=== PATIENT | female | born 1945 | race Caucasian/White ===

== ENCOUNTER 2016-11-13 15:37 | Emergency (ER) | payer MEDICAID, OTHER ==
[~2016-11-13] VITALS: Ht 157.5 cm; Wt 70.0 kg
[2016-11-13 15:50] VITALS: BP 143/92; PULSE 75; RESP 15; TEMP 97.5; O2SAT 95
--- NOTE | 2016-11-13 16:11 | PD ---
HPI Chief Complaint: Skin Problem Time Seen by Provider: 16:00 Travel History International Travel<30 days: No Contact w/Intl Traveler<30days: No Traveled to known affect area: No History of Present Illness HPI 70-year-old female presents for evaluation of an area of painful soft tissue swelling on the left mid back. She first noticed a few days ago. She has had a small bump there for a long time that became more tender and swollen over the last few days. No drainage. No fevers or chills. She has had this issue in the past. No other complaints. PFSH Past Medical History Medical History: Denies Significant Hx Diminished Hearing: No Immunizations Current: Yes Tetanus Vaccination: < 5 Years Influenza Vaccination: No ?: Not Menopausal: Yes Past Surgical History Hysterectomy: Yes Tonsillectomy: Yes Other Surgery: Yes (thyroid) Social History Alcohol Use: No Tobacco Use: No Substance Use: No Allergies-Medications (Allergen,Severity, Reaction): Coded Allergies: Penicillin (Verified Allergy, Intermediate, RASH, 11/13/16) Reported Meds & Prescriptions Reported Meds & Active Scripts Active Clindamycin (Clindamycin HCl) 300 Mg Cap 300 Mg PO TID 7 Days Review of Systems General / Constitutional: No: Fever, Chills Skin: Positive Other (soft tissue swelling, redness, pain) Physical Exam Narrative GENERAL: Well-developed well-nourished female in no acute distress SKIN: Warm and dry. 2-3 cm area of fluctuance on the left upper back. Tender to palpation. There is no drainage. No surrounding erythema. CARDIOVASCULAR: Regular rate and rhythm. No murmur appreciated. RESPIRATORY: No accessory muscle use. Clear to auscultation. Breath sounds equal bilaterally. Data Data Last Documented VS Vital Signs Date Time Temp Pulse Resp B/P Pulse Ox O2 Delivery O2 Flow Rate FiO2 11/13/16 15:50 97.5 75 15 143/92 95 Orders Lidocai-Epi 1%-1:100,000 Inj (Xylocaine- (11/13/16 16:15) Wound Culture And Gram Stain (11/13/16 16:07) MDM Medical Decision Making Medical Screen Exam Complete: Yes Emergency Medical Condition: Yes Medical Record Reviewed: Yes Differential Diagnosis Infected sebaceous cyst, abscess, lipoma, sarcoma Narrative Course The patient appears to have an infected cyst on the left upper back. Incision and drainage performed, she verbally consents. Local wound culture performed. Procedures Procedure Narrative INCISION AND DRAINAGE OF INFECTED CYST: The area was prepped and was sterilely draped. A subcutaneous wheal of 1% Xylocaine with epinephrine with a total number 6 mL was used to anesthetize the area. The area was properly anesthetized. A [id number] scalpel was used to make a 1.5 -cm incision across the area of the abscess. Cultures were obtained. The abscess was drained an irrigated with normal saline. Diagnosis Primary Impression: Infected sebaceous cyst Additional Instructions: Take the antibiotics as prescribed. Warm soaks or compresses 2-3 times a day 10 -15 minutes at a time. Follow-up with primary care physician as needed and return for any emergent medical conditions. Med/Other Pt SpecificInfo: Prescription(s) given, Wound Care Scripts Clindamycin 300 Mg [id number] Mg PO TID 7 Days Ref 0 Prov:Arslan Hernandez MD 11/13/16 Disposition: 01 DISCHARGE HOME Condition: Stable Reynaldo Jang Nov 13, 2016 16:11
[2016-11-13] MEDS ORDERED: LIDOCAINE 1%/EPINEPHrine 1:100,000 SOLN 20 ML VIAL INFIL ONE (16:15)
[2016-11-13] MEDS ORDERED: CLIN1CAP6 PO (16:32)
[2017-02-02] MEDS ORDERED: IBUP200C17 PO (15:26)
== END 2016-11-13 16:56 | disposition home or self-care (01) ==
LOC: PHEFT 15:37
DX: L72.3 Sebaceous cyst (principal)
CPT/HCPCS: 10060; 87070; 87205

== ENCOUNTER 2017-01-24 14:40 | Emergency (ER) | payer MEDICAID, MEDICARE ==
[~2017-01-24] VITALS: Ht 152.4 cm; Wt 76.0 kg
[~2017-01-24 14:40] MED LIST: CLIN1CAP6 PO
[2017-01-24 14:43] VITALS: BP 141/85; PULSE 82; RESP 20; TEMP 98.4; O2SAT 96
--- NOTE | 2017-01-24 15:56 | PD ---
HPI Chief Complaint: Abdominal Pain Time Seen by Provider: 15:42 Travel History International Travel<30 days: No Contact w/Intl Traveler<30days: No Traveled to known affect area: No History of Present Illness HPI 71yo F presents to the ED with c/o abdominal pain for 1 month but worst for last 3 days. States pain started in epigastric, RUQ but now it has migrated to RLQ. Pain is constant. Worst with spicy food. Denies any fever, chest pain, sob, n/v, dysuria, hematuria, vaginal bleeding or discharge. Had hysterectomy. Pt has not seen any physician for this pain. PFSH Past Medical History Medical History: Denies Significant Hx Diminished Hearing: No Immunizations Current: Yes Influenza Vaccination: No ?: Not Menopausal: Yes Past Surgical History Hysterectomy: Yes Tonsillectomy: Yes Other Surgery: Yes (thyroid) Social History Alcohol Use: No Tobacco Use: No Substance Use: No Allergies-Medications (Allergen,Severity, Reaction): Coded Allergies: Penicillin (Verified Allergy, Intermediate, RASH, 01/24/17) Reported Meds & Prescriptions Reported Meds & Active Scripts Active Tylenol (Acetaminophen) 325 Mg Tab 650 Mg PO Q6H PRN Review of Systems Except as stated in HPI: all other systems reviewed are Neg Physical Exam Narrative GENERAL: 71yo F not in distress. SKIN: Focused skin assessment warm/dry. HEAD: Atraumatic. Normocephalic. CARDIOVASCULAR: Regular rate and rhythm. No murmur appreciated. RESPIRATORY: No accessory muscle use. Clear to auscultation. Breath sounds equal bilaterally. GASTROINTESTINAL: Abdomen soft, +Epigastric ttp, RUQ ttp and RLQ ttp. No rebound tenderness or guarding. MUSCULOSKELETAL: No obvious deformities. No clubbing. No cyanosis. No edema. NEUROLOGICAL: Awake and alert. No obvious cranial nerve deficits. Motor grossly within normal limits. Normal speech. PSYCHIATRIC: Appropriate mood and affect; insight and judgment normal. Data Data Last Documented VS Vital Signs Date Time Temp Pulse Resp B/P Pulse Ox O2 Delivery O2 Flow Rate FiO2 01/24/17 18:36 84 18 132/78 98 01/24/17 16:10 Room Air 01/24/17 14:43 98.4 Orders Complete Blood Count With Diff (01/24/17 15:51) Comprehensive Metabolic Panel (01/24/17 15:51) Lipase (01/24/17 15:51) Urinalysis - C+S If Indicated (01/24/17 15:51) Ct Abd/Pel W Iv Contrast(Rout) (01/24/17 15:51) Iv Access Insert/Monitor (01/24/17 15:51) Ecg Monitoring (01/24/17 15:51) Oximetry (01/24/17 15:51) Morphine Inj (Morphine Inj) (01/24/17 16:00) Sodium Chloride 0.9% Flush (Ns Flush) (01/24/17 16:00) Electrocardiogram (01/24/17 15:51) Ketorolac Inj (Toradol Inj) (01/24/17 16:15) Iohexol 350 Inj (Omnipaque 350 Inj) (01/24/17 17:19) Labs Laboratory Tests Test 01/24/17 01/24/17 16:03 16:06 Urine Collection Type CLEAN CATCH Urine Color STRAW Urine Turbidity CLEAR Urine pH 5.5 Urine Specific Salome 1.004 Urine Protein NEG mg/dL Urine Glucose (UA) NEG mg/dL Urine Ketones NEG mg/dL Urine Occult Blood NEG Urine Nitrite NEG Urine Bilirubin NEG Urine Leukocyte Esterase NEG Urine Squamous Epithelial 0-5 /hpf Cells Urine Amorphous Sediment FEW Microscopic Urinalysis Comment CULT NOT INDICATED Urine Collection Time 1603 White Blood Count 8.7 TH/MM3 Red Blood Count 4.36 MIL/MM3 Hemoglobin 12.4 GM/DL Hematocrit 36.6 % Mean Corpuscular Volume 83.9 FL Mean Corpuscular Hemoglobin 28.5 PG Mean Corpuscular Hemoglobin 34.0 % Concent Red Cell Distribution Width 13.3 % Platelet Count 164 TH/MM3 Mean Platelet Volume 9.2 FL Neutrophils (%) (Auto) 52.5 % Lymphocytes (%) (Auto) 33.2 % Monocytes (%) (Auto) 11.7 % Eosinophils (%) (Auto) 1.9 % Basophils (%) (Auto) 0.7 % Neutrophils # (Auto) 4.5 TH/MM3 Lymphocytes # (Auto) 2.9 TH/MM3 Monocytes # (Auto) 1.0 TH/MM3 Eosinophils # (Auto) 0.2 TH/MM3 Basophils # (Auto) 0.1 TH/MM3 CBC Comment DIFF FINAL Differential Comment Sodium Level 142 MEQ/L Potassium Level 4.0 MEQ/L Chloride Level 106 MEQ/L Carbon Dioxide Level 29.8 MEQ/L Anion Gap 6 MEQ/L Blood Urea Nitrogen 14 MG/DL Creatinine 0.70 MG/DL Estimat Glomerular Filtration 83 ML/MIN Rate Random Glucose 82 MG/DL Calcium Level 9.1 MG/DL Total Bilirubin 0.4 MG/DL Aspartate Amino Transf 19 U/L (AST/SGOT) Alanine Aminotransferase 34 U/L (ALT/SGPT) Alkaline Phosphatase 72 U/L Total Protein 7.5 GM/DL Albumin 3.8 GM/DL Lipase 129 U/L MDM Medical Decision Making Medical Screen Exam Complete: Yes Emergency Medical Condition: Yes Interpretation(s) EKG: NSR 72bpm. No ST segment elevation or depression. Laboratory Tests Test 01/24/17 01/24/17 16:03 16:06 Urine Collection Type CLEAN CATCH Urine Color STRAW (YELLW/STRAW) Urine Turbidity CLEAR (CLEAR) Urine pH 5.5 (5.0-8.5) Urine Specific Salome 1.004 (1.002-1.035) Urine Protein NEG mg/dL (NEG-TRACE) Urine Glucose (UA) NEG mg/dL (NEG) Urine Ketones NEG mg/dL (NEG) Urine Occult Blood NEG (NEG) Urine Nitrite NEG (NEG) Urine Bilirubin NEG (NEG) Urine Leukocyte Esterase NEG (NEG) Urine Squamous Epithelial 0-5 /hpf (0-5) Cells Urine Amorphous Sediment FEW Microscopic Urinalysis Comment CULT NOT INDICATED Urine Collection Time 1603 White Blood Count 8.7 TH/MM3 (4.0-11.0) Red Blood Count 4.36 MIL/MM3 (4.00-5.30) Hemoglobin 12.4 GM/DL (11.6-15.3) Hematocrit 36.6 % (35.0-46.0) Mean Corpuscular Volume 83.9 FL (80.0-100.0) Mean Corpuscular Hemoglobin 28.5 PG (27.0-34.0) Mean Corpuscular Hemoglobin 34.0 % Concent (32.0-36.0) Red Cell Distribution Width 13.3 % (11.6-17.2) Platelet Count 164 TH/MM3 (150-450) Mean Platelet Volume 9.2 FL (7.0-11.0) Neutrophils (%) (Auto) 52.5 % (16.0-70.0) Lymphocytes (%) (Auto) 33.2 % (9.0-44.0) Monocytes (%) (Auto) 11.7 % (0.0-8.0) Eosinophils (%) (Auto) 1.9 % (0.0-4.0) Basophils (%) (Auto) 0.7 % (0.0-2.0) Neutrophils # (Auto) 4.5 TH/MM3 (1.8-7.7) Lymphocytes # (Auto) 2.9 TH/MM3 (1.0-4.8) Monocytes # (Auto) 1.0 TH/MM3 (0-0.9) Eosinophils # (Auto) 0.2 TH/MM3 (0-0.4) Basophils # (Auto) 0.1 TH/MM3 (0-0.2) CBC Comment DIFF FINAL Differential Comment Sodium Level 142 MEQ/L (136-145) Potassium Level 4.0 MEQ/L (3.5-5.1) Chloride Level 106 MEQ/L (98-107) Carbon Dioxide Level 29.8 MEQ/L (21.0-32.0) Anion Gap 6 MEQ/L (5-15) Blood Urea Nitrogen 14 MG/DL (7-18) Creatinine 0.70 MG/DL (0.50-1.00) Estimat Glomerular Filtration 83 ML/MIN (>89) Rate Random Glucose 82 MG/DL (74-106) Calcium Level 9.1 MG/DL (8.5-10.1) Total Bilirubin 0.4 MG/DL (0.2-1.0) Aspartate Amino Transf 19 U/L (15-37) (AST/SGOT) Alanine Aminotransferase 34 U/L (10-53) (ALT/SGPT) Alkaline Phosphatase 72 U/L (45-117) Total Protein 7.5 GM/DL (6.4-8.2) Albumin 3.8 GM/DL (3.4-5.0) Lipase 129 U/L (73-393) Differential Diagnosis Pancreatitis vs. cholecystitis vs. appendicitis vs. colitis Narrative Course 71yo F with abdominal pain for 1 month that is worst for the last 3 days. Labs reviewed, no leukocytosis. LFTs normal. Lipase normal. UA negative. CTa/p showed large solid enhancing mass arising from the left kidney measuring 9.4 x 7.4 x 7.3cm consistent with probable renal cell carcinoma until proven otherwise. Informed pt of this and to follow up with urology as soon as possible. Pt given toradol and pain has almost completely resolved. Abdominal exam is benign on reevaluation. Pt has no nausea or vomtiting and is tolerating PO. I have given pt a copy of the CT report and Dr. Graham's information. Diagnosis Primary Impression: Left renal mass Referrals: Roberto Graham MD call for appointment Left renal mass seen on CT scan suspicious for renal cell carcinoma. Patient Instructions: General Instructions Departure Forms: Tests/Procedures Additional Instructions: Please follow up with urology Dr. Graham as soon as possible. Return to the ED if symptoms worsen. Med/Other Pt SpecificInfo: Prescription(s) given Scripts Acetaminophen (Tylenol)325 Mg Rew745 Mg PO Q6H PRN (PAIN SCALE 1 TO 4) #20 TAB Ref 0 Prov:Summer Elliott DO 01/24/17 Disposition: 01 DISCHARGE HOME Condition: Stable Summer Elliott DO January 24, 2017 15:55
[2017-01-24] MEDS ORDERED: SODIUM CHLORIDE 0.9% FLUSH 10 ML FLUSH IV FLUSH PRN (16:00)
[2017-01-24] MEDS ORDERED: MORPHINE SULFATE 4 MG/ML INJ IV PUSH ONE (16:00)
[2017-01-24 16:08] VITALS: BP 142/81; PULSE 68; RESP 18; O2SAT 95
[2017-01-24 16:10] VITALS: O2SAT 96
[2017-01-24] MEDS ORDERED: KETOROLAC TROMETHAMINE 30 MG/ML (IVP) VIAL IV PUSH ONE (16:15)
[2017-01-24 16:25] LABS: AUTOMATED NEUTROPHIL # 4.5 TH/MM3 (1.8-7.7); BASOPHIL # 0.1 TH/MM3 (0-0.2); BASOPHIL % 0.7 % (0.0-2.0); EOSINOPHIL # 0.2 TH/MM3 (0-0.4); EOSINOPHIL % 1.9 % (0.0-4.0); HEMATOCRIT 36.6 % (35.0-46.0); HEMO FLAGS DIFF FINAL; LYMPH % 33.2 % (9.0-44.0); LYMPHOCYTE # 2.9 TH/MM3 (1.0-4.8); MEAN CELL VOLUME 83.9 FL (80.0-100.0); MEAN CORPUSCULAR HEMOGLOBIN 28.5 PG (27.0-34.0); MONO % 11.7 % (0.0-8.0); NEUT % 52.5 % (16.0-70.0); PLATELET COUNT 164 TH/MM3 (150-450); RED BLOOD COUNT 4.36 MIL/MM3 (4.00-5.30); RED CELL DISTRIBUTION WIDTH 13.3 % (11.6-17.2); WHITE BLOOD COUNT 8.7 TH/MM3 (4.0-11.0)
[2017-01-24 16:28] LABS: BLOOD, URINE NEG (NEG); GLUCOSE,URINE NEG (NEG); KETONE, URINE NEG (NEG); NITRITE,URINE NEG (NEG); PH, URINE 5.5 (5.0-8.5)
[2017-01-24 16:37] LABS: CHLORIDE 106 MEQ/L (98-107); SODIUM (NA) 142 MEQ/L (136-145)
[2017-01-24 16:38] LABS: METHOD OF COLLECTION CLEAN CATCH; URINE COLOR STRAW (YELLW/STRAW)
[2017-01-24 16:39] LABS: COMMENT (UR) CULT NOT INDICATED; CULTURE IF INDICATED CULT NOT INDICATED; SQUAMOUS EPITHELIAL CELL URINE 0-5 /hpf (0-5)
[2017-01-24 16:41] LABS: ANION GAP 6 MEQ/L (5-15); BICARBONATE 29.8 MEQ/L (21.0-32.0); BLOOD UREA NITROGEN 14 MG/DL (7-18)
[2017-01-24 16:44] LABS: ALT (GPT) 34 U/L (10-53); AST (GOT) 19 U/L (15-37); GLOMERULAR FILTRATION RATE 83 ML/MIN (>89)
[2017-01-24 16:45] LABS: TOTAL BILIRUBIN ADULT 0.4 MG/DL (0.2-1.0)
[2017-01-24 16:47] LABS: ALKALINE PHOSPHATASE 72 U/L (45-117)
[2017-01-24] MEDS ORDERED: IOHEXOL 350 MG/ML 10 ML VIAL (for RAD DIAG) IV ONE (17:19)
--- NOTE | 2017-01-24 18:05 | RADHPO ---
EXAM DATE/TIME: 01/24/2017 17:08 [facility] COMPARISON: No previous studies available for comparison. INDICATIONS : Right sided abdominal pain. IV CONTRAST: 75 cc Omnipaque 350 (iohexol) IV ORAL CONTRAST: No oral contrast ingested. RADIATION DOSE: 16.33 CTDIvol (mGy) MEDICAL HISTORY : None SURGICAL HISTORY : Hysterectomy. ENCOUNTER: Initial ACUITY: 1 day PAIN SCALE: 2/10 LOCATION: Right upper quadrant TECHNIQUE: Volumetric scanning of the abdomen and pelvis was performed. Using automated exposure control and ad justment of the mA and/or kV according to patient size, radiation dose was kept as low as reasonably achievable to obtain optimal diagnostic quality images. FINDINGS: There is evidence of a large solid enhancing mass arising from the left kidney measuring 9.4 x 7.4 x 7.3 cm consistent with probable renal cell carcinoma until proven otherwise. No thrombus is noted wi thin the left renal vein. No significant retroperitoneal lymphadenopathy is noted. There is a compl ex cystic lesion within the right kidney measuring 2.6 cm which is somewhat indeterminate on this exa mination. Scattered smaller simple cysts are noted within the right kidney also. There is a low den sity lesion within the left lobe of the liver measuring 12 mm consistent with probable hepatic cyst. No biliary ductal dilatation is noted. The gallbladder is nondistended. The spleen is normal. The pancreas is also normal. The adrenal glands are normal bilaterally. The abdominal aorta is calcifi ed but is not aneurysmally dilated. The inferior vena cava is normal. No ascites is noted. Uncompl icated sigmoid diverticulosis is noted. No acute diverticulitis is noted. The urinary bladder is un remarkable. Degenerative changes and scoliosis of the thoracolumbar spine are noted. Scattered fibr otic scarring and/or atelectasis is noted within the lung bases. CONCLUSION: 1. Large solid enhancing mass arising from the left kidney measuring 9.4 x 7.4 x 7.3 cm consistent wi th probable renal cell carcinoma until proven otherwise. 2. Complex cystic lesion within the right kidney measuring 2.6 cm. Ultrasound may be helpful for fur ther evaluation of this finding if clinically indicated. 3. Smaller simple right renal cysts. 4. 12 mm simple cyst within the left lobe of the liver. 5. Uncomplicated sigmoid diverticulosis. 6. Degenerative changes and scoliosis of the thoracolumbar spine. Magnus German MD on January 24, 2017 at 17:36 Board Certified Radiologist. This report was verified electronically.
[2017-01-24] MEDS ORDERED: TYLE325T PO (18:18)
[2017-01-24 18:36] VITALS: BP 132/78
--- NOTE | 2017-01-25 08:22 | EKG ---
Date Performed: 01/24/2017 Time Performed: 16:00:06 PTAGE: 71 years EKG: Sinus rhythm Normal ECG NO PREVIOUS TRACING DOCTOR: August Delgado Interpretating Date/Time 01/25/2017 08:22:09
[2017-02-02] MEDS ORDERED: IBUP200C17 PO (15:26)
== END 2017-01-24 18:38 | disposition home or self-care (01) ==
LOC: PHED 14:40
DX: N28.89 Other specified disorders of kidney and ureter (principal); R10.31 Right lower quadrant pain; Z88.0 Allergy status to penicillin
CPT/HCPCS: 74177; 80053; 81001; 83690; 85025; 93005; 96374; 99285; J1885; Q9967

== ENCOUNTER → 2017-02-11 | Outpatient (CLI) | payer MEDICAID ==
[~2017-02-11] MED LIST changes: -CLIN1CAP6 PO; +GADODIAMIDE PF 287 MG/ML 10 ML VIAL (for RAD MRI) IV ONE; +IBUP200C17 PO
--- NOTE | 2017-02-11 10:47 | RADRPT ---
EXAM DATE/TIME: 02/11/2017 07:58 [facility] COMPARISON: CT ABDOMEN & PELVIS W CONTRAST, January 24, 2017, 17:08. INDICATIONS : Renal mass. Right. CONTRAST: 8 cc Omniscan (gadodiamide) IV MEDICAL HISTORY : None. SURGICAL HISTORY : Hysterectomy. Tonsillectomy. Thyroidectomy. ENCOUNTER: Subsequent ACUITY: 2 months PAIN SCORE: 3/10 LOCATION: Abdomen TECHNIQUE: Multiplanar, multisequence magnetic resonance imaging of the abdomen was performed without and with i ntravenous contrast. FINDINGS: There is a large left renal mass measuring 9.3 cm the upper pole of the left kidney that is spread th rough Gerota's fascia. This mass is compressing the renal vein without obvious tumor invasion. The mass in intima association with the tail of the pancreas. There is a plane in between spleen and mas s. Large vessels are seen about the superior lateral margin of this mass. There is a second mass id entified sitting almost in the splenic hilum that is in an unusual location for adenopathy. This sampson s also have a cystic component measuring 2 cm that is intima association with the fundus of the stoma ch. There is a second complex mass in the right kidney that is septated and does show scattered areas of septum enhancement. This would be considered at least Bosniak grade III. There is no retroperitoneal adenopathy. The liver is unremarkable. CONCLUSION: Large left renal mass as described above consistent with renal cell carcinoma. Cystic mass on the ri ght Bosniak grade III. Third mass adjacent to the fundus of the stomach probable unrelated to the ki dneys. Simple cyst dome of the liver. Henrique Macias MD FACR on February 11, 2017 at 10:15 Board Certified Radiologist. This report was verified electronically.
== END ==
LOC: HRAD 06:42
PROVIDERS: ATTEND Urology
DX: N28.89 Other specified disorders of kidney and ureter (principal)
CPT/HCPCS: 74183; A9579

== ENCOUNTER → 2017-02-15 | Outpatient (CLI) | payer MEDICAID, MEDICARE ==
[~2017-02-15] MED LIST changes: -GADODIAMIDE PF 287 MG/ML 10 ML VIAL (for RAD MRI) IV ONE; +IOHEXOL 350 MG/ML 10 ML VIAL (for RAD DIAG) IV ONE
--- NOTE | 2017-02-15 11:23 | RADRPT ---
EXAM DATE/TIME: 02/15/2017 10:12 [facility] COMPARISON: No previous studies available for comparison. INDICATIONS : Evaluate for metastatic disease. IV CONTRAST: 70 cc Omnipaque 350 (iohexol) IV RADIATION DOSE: 10.29 CTDIvol (mGy) MEDICAL HISTORY : Renal mass. SURGICAL HISTORY : Hysterectomy. Thyroidectomy. ENCOUNTER: Initial ACUITY: 1 day PAIN SCALE: 0/10 LOCATION: chest TECHNIQUE: Volumetric scanning of the chest was performed. Using automated exposure control and adjustment of t he mA and/or kV according to patient size, radiation dose was kept as low as reasonably achievable to obtain optimal diagnostic quality images. FINDINGS: LUNGS: There is no consolidation or pneumothorax. 8mm nodule right lower lobe. There is also a bilobed densi ty measuring 13 mm in the right lower lobe abutting the mediastinum. 4 mm nodule right upper lobe. PLEURA: There is no pleural thickening or pleural effusion. MEDIASTINUM: The heart and great vessels demonstrate no acute abnormality. There is no mediastinal or hilar lymph adenopathy. AXILLAE: Within normal limits. No lymphadenopathy. SKELETAL: Within normal limits for patient age. MISCELLANEOUS: The visualized upper abdominal organs demonstrate large exophytic mass arising from the left kidney. Right renal low density and hepatic low densities. Prominent soft tissue density adjacent to the sple en and stomach measuring 3.1 x 2.5 cm. CONCLUSION: 1. There is an 8mm pulmonary nodule and 4 mm nodule in the right lung. There is also a bilobed densit y in the right lower lobe adjacent to the mediastinum, nonspecific. PET/CT scan may be warranted to e valuate for hypermetabolic activity. 2. No enlarged mediastinal/hilar adenopathy. 3. Large exophytic mass arising from left kidney. 4. Prominent soft tissue nodule adjacent to the stomach and spleen measuring 3.1 x 2.5 cm likely meta static adenopathy. Chico Man MD on February 15, 2017 at 10:40 Board Certified Radiologist. This report was verified electronically.
--- NOTE | 2017-02-15 14:18 | RADRPT ---
EXAM DATE/TIME: 02/15/2017 09:41 [facility] COMPARISON: CT ABDOMEN & PELVIS W CONTRAST, January 24, 2017, 17:08. PRIOR BONE SCANS: No correlative bone scan available for comparison. INDICATIONS : Neoplasm. Bilateral kidney tumors. DOSE: 30.0 mCi Tc99m MDP IV MEDICAL HISTORY : None SURGICAL HISTORY : Tonsillectomy. Hysterectomy. ENCOUNTER: Initial ACUITY: 1 day PAIN SCALE: 0/10 LOCATION: upper quadrant TECHNIQUE: Three hours post intravenous administration of radiotracer, whole body bone scan imaging was performe d. FINDINGS: Blood pool images demonstrate a homogeneous pattern of uptake in the soft tissues. No hyperemic area s are identified. Planar bone scan demonstrates a normal pattern of uptake. No focal areas of incre ased or decreased uptake are seen. There is degenerative uptake along the lower lumbar spine, both sh oulders, both knees and both ankles. CONCLUSION: 1. Degenerative changes as described above. 2. No evidence for bony metastasis. Chico Man MD on February 15, 2017 at 14:04 Board Certified Radiologist. This report was verified electronically.
== END ==
LOC: HRAD 09:22
PROVIDERS: ATTEND Urology
DX: D30.00 Benign neoplasm of unspecified kidney (principal)
CPT/HCPCS: 71260; 78306; A9503; Q9967

== ENCOUNTER 2017-02-23 16:45 | Inpatient (IN) | payer MEDICARE, MEDICAID ==
[~2017-02-23] VITALS: Ht 160 cm; Wt 76.5 kg
[~2017-02-23 16:45] MED LIST changes: -IOHEXOL 350 MG/ML 10 ML VIAL (for RAD DIAG) IV ONE
[2017-02-25] VITALS (7 sets, daily range): BP systolic 94–156; BP diastolic 59–87; PULSE 71–86; RESP 12–16; TEMP 97.4–98.3; O2SAT 95–97
[2017-02-25] MEDS ORDERED: SODIUM CHLORID 0.9% 500 ML IV PRN (06:15)
[2017-02-25] MEDS ORDERED: LACTATED RINGER'S 1000 ML IV PRN (06:15)
[2017-02-25] MEDS ORDERED: INSULIN HUMAN REGULAR 1,000 UNITS/10 ML VIAL SQ PRN (06:15)
[2017-02-25] MEDS ORDERED: CHLORHEXIDINE GLUCONATE 2 % 1 PACK (2 CLOTHS) TOPICAL PRN (06:15)
[2017-02-25] MEDS ORDERED: METOPROLOL TARTRATE 25 MG TAB PO PRN (06:15)
[2017-02-25] MEDS ORDERED: POVIDONE IODINE 5% (ANTISEPSIS KIT) 4 APPLICATIONS EACH NARE PRN (06:15)
[2017-02-25] MEDS ORDERED: VANCOMYCIN 1,000 MG/NS 250 ML IV SCH ×2 (06:15)
[2017-02-25] MEDS ORDERED: ACETAMINOPHEN 1000 MG/100 ML VIAL IV ONE (07:08)
[2017-02-25] MEDS ORDERED: MIDAZOLAM HCL 2 MG/2 ML VIAL ONE (07:08)
[2017-02-25] MEDS ORDERED: fentaNYL CITRATE 250 MCG/5 ML AMP ONE (07:09)
[2017-02-25] MEDS ORDERED: DICLOFENAC SODIUM 37.5 MG/ML VIAL IV PUSH ONE (07:09)
[2017-02-25] MEDS ORDERED: DEXAMETHASONE SOD PHOS 4 MG/ML VIAL ONE (07:09)
[2017-02-25] MEDS ORDERED: HYDROmorphone HCL PF 2 MG/ML VIAL ONE (07:09)
[2017-02-25] MEDS ORDERED: FAMOTIDINE 20 MG/2 ML VIAL ONE (07:09)
[2017-02-25] MEDS ORDERED: SUGAMMADEX SODIUM 200 MG/2 ML VIAL IV PUSH ONE ×2 (07:09)
[2017-02-25] MEDS ORDERED: ePHEDrine/NS 25 MG/5 ML SYR IV ONE (08:43)
[2017-02-25] MEDS ORDERED: NEOSTIGMINE 3 MG/3 ML SYR IV ONE (08:43)
[2017-02-25] MEDS ORDERED: PROPOFOL 200 MG/20 ML AMP IV ONE (08:43)
[2017-02-25] MEDS ORDERED: PHENYLEPH/NS 1000 MCG/10 ML SYR IV ONE (08:45)
[2017-02-25] MEDS ORDERED: ONDANSETRON HCL 4 MG/2 ML VIAL IV PUSH ONE (08:45)
[2017-02-25] MEDS ORDERED: LACTATED RINGER'S 1000 ML INJ 2,000 ML IV ONE (08:45)
[2017-02-25 10:53] LABS: BLOOD GAS BASE EXCESS -2.5 mmol/L (-2-2); BLOOD GAS CARBOXYHEMOGLOBIN 1.3 % (0-4); BLOOD GAS HCO3 22 mmol/L (22-26); BLOOD GAS O2 HGB SATURATION 98 % (90-100); BLOOD GAS OXYGEN CONTENT 13.9 Vol % (12.0-20.0); BLOOD GAS PCO2 38 mmHg (38-42); BLOOD GAS PO2 245 mmHg (61-120); BLOOD GAS TOTAL HGB 9.7 G/DL (12.0-16.0); CRITICAL VALUE NO; DRAW SITE ART LINE; OXYGEN DEVICE VENTILATOR; STAT YES; TEMP CORR TO 98.6
[2017-02-25 11:53] LABS: BLOOD GAS BASE EXCESS -3.7 mmol/L (-2-2); BLOOD GAS CARBOXYHEMOGLOBIN 1.4 % (0-4); BLOOD GAS HCO3 21 mmol/L (22-26); BLOOD GAS METHEMOGLOBIN 1.3 % (0-2); BLOOD GAS O2 HGB SATURATION 97 % (90-100); BLOOD GAS OXYGEN CONTENT 16.2 Vol % (12.0-20.0); BLOOD GAS PCO2 37 mmHg (38-42); BLOOD GAS PO2 264 mmHg (61-120); BLOOD GAS TOTAL HGB 11.4 G/DL (12.0-16.0); CRITICAL VALUE NO; DRAW SITE ART LINE; OXYGEN DEVICE VENTILATOR; TEMP CORR TO 98.6
[2017-02-25 11:54] LABS: STAT YES
[2017-02-25] MEDS ORDERED: BUPIVACAINE/EPINEPHRINE 0.5% 50 ML VIAL INFIL ONE (12:08)
[2017-02-25 12:12] LABS: AUTOMATED NEUTROPHIL # 16.1 TH/MM3 (1.8-7.7); BASOPHIL % 0.2 % (0.0-2.0); EOSINOPHIL % 0.1 % (0.0-4.0); HEMATOCRIT 35.5 % (35.0-46.0); HEMO FLAGS DIFF FINAL; LYMPH % 7.9 % (9.0-44.0); LYMPHOCYTE # 1.5 TH/MM3 (1.0-4.8); MEAN CELL VOLUME 82.8 FL (80.0-100.0); MEAN CORPUSCULAR HGB CONC 32.7 % (32.0-36.0); MONO % 6.7 % (0.0-8.0); NEUT % 85.1 % (16.0-70.0); PLATELET COUNT 147 TH/MM3 (150-450); RED BLOOD COUNT 4.28 MIL/MM3 (4.00-5.30); WHITE BLOOD COUNT 18.9 TH/MM3 (4.0-11.0)
[2017-02-25] MEDS ORDERED: DO NOT ADM ANY ANTICOAGULANT DRUGS PRN (12:18)
--- NOTE | 2017-02-25 12:28 | HHI.PR ---
cc: Flynn Kennedy MD Immediate Post Op Note Procedure Date: Feb 25, 2017 Pre Op Diagnosis: (1) Left renal mass Post Op Diagnosis: (1) Left renal mass (2) Mass of stomach Surgeon: Flynn Kennedy [employer]erg[employer] Pipe Covering Supervisor(s): [place] Connors M.D. Procedure: Resection of gastric mass on the greater curve Findings: 3 cm mass greater curve Anesthesia: General Drains: None IVF Flynn Kennedy MD Feb 25, 2017 12:27
--- NOTE | 2017-02-25 12:39 | PD.OP ---
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 Martin Resident Surgeon: None Operation and Findings: 71-year-old female who presented to the office with a 9.3 cm left renal mass on CT scan. MRI was performed which demonstrated no evidence of renal vein involvement however there was a 3 cm mass in the gastro-lineal area concerning for metastatic disease. Decision was made to bring the patient to the operating room to undergo left radical nephrectomy and lymphadenectomy of possible metastatic disease. Chest MRI was negative for any evidence of metastatic disease as well as a PET scan. Risk and benefits were discussed preoperatively and she is willing to proceed. Patient was brought to operating room identified myself as Anastasia Sotelo. She was placed on the operating table in the supine position, prepped and draped in usual sterile fashion, received preprocedure antibiotics, and general endotracheal tube anesthesia was administered. 15 blade was used to make the opening left subcostal incision. Savi's and Camper's fascia were then entered as well as the oblique muscles. Peritoneum was then entered and the left descending colon was identified. Using the Bovie cautery, the descending colon was was released of its attachments along the line of Toldt. The descending colon was then reflected medially. The surrounding introitus fascia was then incised with the Bovie cautery and using my index finger I was able to free up some of the attachments along the lateral aspect of the kidney. The lower pole was then freed up of its attachments oozing the Bovie cautery. The left renal vein was then identified and a blue vessel loop was passed around the vessel using a right angle clamp. The left renal artery was also identified and it was isolated and a red vessel loop was passed around this using the right angle clamp. Both vessels were suture ligated using a 0 silk suture. The vessels were then cut. The superior attachments were then freed up using the Bovie cautery. Due to neovascularity due to large tumor some blood loss was incurred during resection. At this time, decision made to use the Ethicon stapler to remove the specimen and block from its attachments near the hilum. Specimen was then removed from the patient. Hemostasis was then obtained. There was a 3 cm mass attached to the greater curvature of the stomach and this was removed with the Metzenbaum scissors. The mass though was also extending within the lining of the stomach and general surgery was consult. Dr. Kennedy came into the room and performed a partial gastrectomy and he will dictate his portion of the case. Once Dr. Kennedy completed his portion of the case, hemostasis was then checked for. There was some oozing around the area of the spleen and Surgicel with Kavita was then placed in this area. This is allowed to sit for 5 minutes. Upon reinspection, there is no evidence of further bleeding. Decision this point was made to close the patient. The wound was irrigated. #1 looped PDS was then used to close the fascia in a running fashion. A 2 layer closure was performed. [place] were then used to close the skin. Prior to closing, a 19 Macedonian Farooq drain was placed into the wound to bulb suction. 0.5 % Marcaine was injected into the area of the wound at the time of closing. NG tube was then placed at the completion of the procedure. She was extubated and awoken and transferred to her room in stable condition. She tolerated procedure well. Tony Connors DO Feb 25, 2017 12:39
[2017-02-25] MEDS ORDERED: *morphine SULFATE 8 MG/ML PERIprocedure ONLY ONE (12:56)
--- NOTE | 2017-02-25 13:22 | PD.CONS ---
[facility] Service Critical Care Medicine Consult Requested By Urological Surgery Reason for Consult Critical Care Management Primary Care Physician Non-Staff History of Present Illness 71 y/o woman immediately s/p left nephrectomy for large renal mass and partial gastric resection for additional mass. EBL 1,800 mls. Review of Systems Constitutional: DENIES: Diaphoretic episodes, Fatigue, Fever, Weight gain, Weight loss, Chills, Dizziness, Change in appetite, Night Sweats Endocrine: DENIES: Abnorml menstrual pattern, Heat/cold intolerance, Polydipsia , Polyuria, Polyphagia Eyes: DENIES: Blurred vision, Diplopia, Eye inflammation, Eye pain, Vision loss , Photosensitivity, Double Vision Ears, nose, mouth, throat: DENIES: Tinnitus, Hearing loss, Vertigo, Nasal discharge, Oral lesions, Throat pain, Hoarseness, Ear Pain, Running Nose, Epistaxis, Sinus Pain, Toothache, Odynophagia Respiratory: DENIES: Apneas, Cough, Snoring, Wheezing, Hemoptysis, Sputum production, Shortness of breath Cardiovascular: DENIES: Chest pain, Palpitations, Syncope, Dyspnea on Exertion , PND, Lower Extremity Edema, Orthopnea, Claudication Gastrointestinal: COMPLAINS OF: Abdominal pain Musculoskeletal: DENIES: Joint pain, Muscle aches, Stiffness, Joint Swelling, Back pain, Neck pain Hematologic/lymphatic: DENIES: Bruising, Lymphadenopathy Immunologic/allergic: DENIES: Eczema, Urticaria ROS Typical postop abdominal pain. No chest pain or SOB. Past Family Social History Allergies: Coded Allergies: Penicillin (Verified Allergy, Intermediate, RASH, 02/25/17) Vancomycin (Verified Allergy, Intermediate, FACIAL/CHEST RASH, 02/25/17) Past Medical History S/P Thyroidectomy MAXINE Tonillectomy Allergies PCN - Rash Meds: NSAID Physical Exam Vital Signs Vital Signs Date Time Temp Pulse Resp B/P Pulse Ox O2 Delivery O2 Flow Rate FiO2 02/25/17 06:16 98.3 80 16 156/87 95 Physical Exam P 74, BP 85/51, R 114, sats 97% Gen: Calm Head: NL. Neck: Supple, airway patent, no obstruction or stridor. Lungs: Clear, no labored efforts. Heart: NL S1S2, RRR, Neck veins are flat. Abdomen: Post surgical, nondistended. Quiet. Extremities: Warm, well perfused. Neuro: Sleepy but O X 3, moves 4 limbs to command. Laboratory Laboratory Tests Test 02/25/17 02/25/17 02/25/17 02/25/17 06:15 10:44 11:19 11:40 Blood Type O POSITIVE O POSITIVE Blood Gas Puncture Site ART LINE Blood Gas Patient Temperature 98.6 Blood Gas HCO3 22 Blood Gas Base Excess -2.5 Blood Gas Oxygen Saturation 98 Arterial Blood pH 7.38 Arterial Blood Partial 38 Pressure CO2 Arterial Blood Partial 245 Pressure O2 Arterial Blood Oxygen Content 13.9 Arterial Blood 1.3 Carboxyhemoglobin Arterial Blood Methemoglobin 1.0 Blood Gas Hemoglobin 9.7 Oxygen Delivery Device VENTILATOR Crossmatch Leukocyte-Reduced Red Blood Cells Blood Bank Comment White Blood Count 18.9 Red Blood Count 4.28 Hemoglobin 11.6 Hematocrit 35.5 Mean Corpuscular Volume 82.8 Mean Corpuscular Hemoglobin 27.0 Mean Corpuscular Hemoglobin 32.7 Concent Red Cell Distribution Width 14.0 Platelet Count 147 Mean Platelet Volume 9.6 Neutrophils (%) (Auto) 85.1 Lymphocytes (%) (Auto) 7.9 Monocytes (%) (Auto) 6.7 Eosinophils (%) (Auto) 0.1 Basophils (%) (Auto) 0.2 Neutrophils # (Auto) 16.1 Lymphocytes # (Auto) 1.5 Monocytes # (Auto) 1.3 Eosinophils # (Auto) 0.0 Basophils # (Auto) 0.0 CBC Comment DIFF FINAL Differential Comment Test 02/25/17 11:45 Blood Gas Puncture Site ART LINE Blood Gas Patient Temperature 98.6 Blood Gas HCO3 21 Blood Gas Base Excess -3.7 Blood Gas Oxygen Saturation 97 Arterial Blood pH 7.37 Arterial Blood Partial 37 Pressure CO2 Arterial Blood Partial 264 Pressure O2 Arterial Blood Oxygen Content 16.2 Arterial Blood 1.4 Carboxyhemoglobin Arterial Blood Methemoglobin 1.3 Blood Gas Hemoglobin 11.4 Oxygen Delivery Device VENTILATOR Result Diagram: 02/25/17 1140 Assessment and Plan Assessment and Plan Assessment: 1. S/P left radial nephrectomy. 2. S/P partial gastric resection Plan: 1. Maintenance iv rate. 2. IS q2h. 3. Pulse ox. 4. CBC a.m. 5. BMP a.m. 6. HOB up 30 degrees. 7. NG to LIS, NPO. Overall impression: Warm and well perfused s/p left radical nephrectomy. Mild hypotension but quite stable. Urine output 50 ml over past hour. Will follow in ISC. Chemo Harmon MD Feb 25, 2017 13:22
[2017-02-25 13:48] LABS: BICARBONATE 22.8 MEQ/L (21.0-32.0); POTASSIUM 3.6 MEQ/L (3.5-5.1)
[2017-02-25] MEDS ORDERED: HYDROmorphone HCL PCA 6 MG/30 ML IV ONE (14:03)
--- NOTE | 2017-02-25 14:16 | RADRPT ---
EXAM DATE/TIME: 02/25/2017 12:59 [facility] COMPARISON: No previous studies available for comparison. INDICATIONS : Right central line placement MEDICAL HISTORY : Renal mass SURGICAL HISTORY : Nephrectomy ENCOUNTER: Initial ACUITY: 2 days PAIN SCORE: 5/10 LOCATION: Right chest FINDINGS: A right internal jugular central line has its tip at the junction of the superior vena cava and right atrium. There is no pneumothorax. A nasogastric tube has its tip in the proximal stomach and the s billy port in the distal esophagus. Scattered bibasilar atelectatic changes are noted. the heart is n ormal. CONCLUSION: 1. No pneumothorax status post placement of right internal jugular central line which has its tip at the junction of the superior vena cava and right atrium in good position. 2. Nasogastric tube has its tip in the proximal stomach and side port in the distal esophagus. 3. Bibasilar atelectasis. Magnus German MD on February 25, 2017 at 14:07 Board Certified Radiologist. This report was verified electronically.
--- NOTE | 2017-02-25 14:19 | MB ---
cc: MENA MELISSA M.D. DATE OF CONSULTATION: 02/25/2017 CONSULTING PHYSICIAN: [place] Connors MD. REASON FOR CONSULTATION: Gastric mass. HISTORY OF PRESENT ILLNESS: This is a 71 year old female who was found to have a renal carcinoma on the left side. She is undergoing a left nephrectomy. Dr. Connors called me into the operating room to evaluate a gastric mass along the greater curvature. He has completed the nephrectomy and has asked me to assist in the management of this gastric mass along the greater curve. 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 She had thyroid surgery in 1987. No neurologic, cardiac or respiratory issues reported in the computer and of course she is under general anesthesia so I could not do a formal review of systems. ALLERGIES PENICILLIN VANCOMYCIN MEDICATIONS: Tylenol Ibuprofen. PHYSICAL EXAMINATION: IN GENERAL: She is under general anesthesia on the ventilator, is stable. The part of the examination that I can comment on, she is on the operating room table, she appears to have a regular heart rate. ABDOMEN: She has a subcostal incision to the left side, with this tumor on the greater curve that is able to be visualized and palpated. She is status post left nephrectomy. There appears to be adequate hemostasis. NEUROLOGIC: Examination is not able to be preformed as the patient is under general anesthesia. LABORATORY DATA: Earlier today she had a blood count of 8, an Hemoglobin and hematocrit of 12 and 37. The white count was 6, chemistries are essentially normal. IMAGING STUDIES: Reviewed in the room showing the left mass. ASSESSMENT: Gastric mass along the greater curve. PLAN: This looks like it needs to be resected to me. 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 MD TIMMY Joiner/romain /12:45 PM /2:12 PM JOSÉ ANTONIO
[2017-02-25] MEDS ORDERED: CHLORHEXIDINE GLUCONATE 2 % 1 PACK (2 CLOTHS) TOP PRN (14:45)
[2017-02-25] MEDS ORDERED: MISCELLANEOUS NURSING INFORMATION XX SCH (14:45)
[2017-02-25] MEDS ORDERED: RESP: ALBUTEROL 2.5 MG/IPRATROPIUM 0.5 MG NEB (PRN) INH (14:45)
[2017-02-25] MEDS ORDERED: ONDANSETRON HCL 4 MG/2 ML VIAL IV PRN (14:45)
[2017-02-25] MEDS ORDERED: MORPHINE SULFATE 4 MG/ML INJ IV PRN (14:45)
[2017-02-25] MEDS ORDERED: HYDROmorphone HCL PF 1 MG/ML VIAL IV PUSH PRN (14:45)
[2017-02-25] MEDS ORDERED: SODIUM CHLORID 0.9% 500 ML INJ 500 ML IV ONE (15:00)
[2017-02-25] MEDS ORDERED: ACETAMINOPHEN 650 MG/20.3 ML UDC PO PRN (15:00)
[2017-02-25] MEDS ORDERED: diphenhydrAMINE HCL 25 MG CAP PO PRN (15:00)
[2017-02-25] MEDS ORDERED: ONDANSETRON HCL 4 MG/2 ML VIAL IV PUSH PRN (15:00)
[2017-02-25] MEDS ORDERED: NALOXONE HCL 0.4 MG/ML AMP IV PRN (15:00)
[2017-02-25] MEDS: CIPROFLOXACIN 400 MG PREMIX 200 ML IV SCH (15:32)
[2017-02-25] MEDS: SODIUM CHLOR 0.9% 1000 ML INJ 1,000 ML IV SCH (15:52)
--- NOTE | 2017-02-25 16:09 | RADRPT ---
EXAM DATE/TIME: 02/25/2017 12:54 [facility] COMPARISON: No previous studies available for comparison. INDICATIONS : NG tube placement MEDICAL HISTORY : Renal mass SURGICAL HISTORY : Nephrectomy ENCOUNTER: Initial ACUITY: 1 day PAIN SCORE: 6/10 LOCATION: Abdomen FINDINGS: There is a suction type nasogastric catheter with tip likely in the fundus of the stomach but sidehol e appears to be in the distal esophagus there is a left mid abdomen drain in place. Surgical staple l ine is seen in the left abdomen. Non-obstructive bowel gas pattern. Degenerative changes of the lumba r spine. CONCLUSION: 1. Suction type NGT tip likely just in the fundus of the stomach with sidehole in the distal esophagu misael Carvalho MD on February 25, 2017 at 16:05 Board Certified Radiologist. This report was verified electronically.
[2017-02-25] MEDS ORDERED: RESP: ALBUTEROL 2.5 MG/IPRATROPIUM 0.5 MG NEB (PRN) NEB (17:00)
[2017-02-25 17:41] LABS: HEMATOCRIT 32.9 % (35.0-46.0); REVIEW FLAG FINAL
[2017-02-25] MEDS ORDERED: PHENOL 1.4% SOLN 180 ML BTL OROPHARYNG PRN (21:30)
[2017-02-25] MEDS: PCA - TOTAL MG DILAUDID DELIVERED PER SHIFT SCH (22:00)
[2017-02-26] VITALS (13 sets, daily range): BP systolic 85–114; BP diastolic 52–62; PULSE 74–95; RESP 12–19; TEMP 97.5–99.6; O2SAT 94–98
[2017-02-26 04:38] LABS: AUTOMATED NEUTROPHIL # 9.6 TH/MM3 (1.8-7.7); BASOPHIL % 0.1 % (0.0-2.0); HEMATOCRIT 28.5 % (35.0-46.0); HEMO FLAGS DIFF FINAL; LYMPH % 11.5 % (9.0-44.0); LYMPHOCYTE # 1.5 TH/MM3 (1.0-4.8); MEAN CELL VOLUME 82.3 FL (80.0-100.0); MEAN CORPUSCULAR HEMOGLOBIN 27.6 PG (27.0-34.0); MEAN CORPUSCULAR HGB CONC 33.5 % (32.0-36.0); MONO % 14.8 % (0.0-8.0); NEUT % 73.6 % (16.0-70.0); PLATELET COUNT 133 TH/MM3 (150-450); RED BLOOD COUNT 3.47 MIL/MM3 (4.00-5.30); RED CELL DISTRIBUTION WIDTH 14.5 % (11.6-17.2)
[2017-02-26 04:59] LABS: POTASSIUM 4.3 MEQ/L (3.5-5.1)
[2017-02-26] MEDS: CHLORHEXIDINE GLUCONATE 2 % 1 PACK (2 CLOTHS) TOP SCH (05:06)
[2017-02-26] MEDS: SODIUM CHLOR 0.9% 1000 ML INJ 1,000 ML IV SCH ×2 (05:06→16:52)
[2017-02-26] MEDS ORDERED: SODIUM CHLOR 0.9% 1000 ML INJ 1,000 ML IV ONE (05:45)
[2017-02-26] MEDS: PCA - TOTAL MG DILAUDID DELIVERED PER SHIFT SCH ×3 (06:00→22:32)
--- NOTE | 2017-02-26 06:08 | RADRPT ---
EXAM DATE/TIME: 02/26/2017 04:18 [facility] COMPARISON: CHEST SINGLE AP, February 25, 2017, 12:59. INDICATIONS : Post op. MEDICAL HISTORY : Renal mass. SURGICAL HISTORY : Hysterectomy. Nephrectomy, left. Thyroidectomy ENCOUNTER: Initial ACUITY: 1 day PAIN SCORE: LOCATION: Bilateral chest FINDINGS: A single view of the chest demonstrates the nasogastric tube is within the esophagus with its tip at the GE junction. Right IJ central venous catheter in good position. Minimal atelectasis right midlung zone. No visible pneumothorax. Lungs are grossly clear.. The cardiomediastinal contours are unremar kable. Osseous structures are intact. CONCLUSION: The NG tube could be advanced. Lungs are grossly clear. Dustin Brown MD on February 26, 2017 at 6:06 Board Certified Radiologist. This report was verified electronically.
--- NOTE | 2017-02-26 07:09 | HHI.CCPN ---
Subjective Remarks/Hospital Course 71 y/o woman immediately s/p left nephrectomy for large renal mass and partial gastric resection for additional mass. EBL 1,800 mls. 02/26: Warm, well perfused. MAP 59 - 63. Urine output acceptable. Creat rise minimal. Objective Vital Signs Date Time Temp Pulse Resp B/P Pulse Ox O2 Delivery O2 Flow Rate FiO2 02/26/17 06:00 88 02/26/17 06:00 13 02/26/17 04:00 97.6 85/52 94 02/25/17 20:11 Nasal Cannula 2.00 Intake and Output 02/25/17 02/25/17 02/26/17 08:00 16:00 00:00 Intake Total 2614 ml 722 ml Output Total 2235 ml 335 ml Balance 379 ml 387 ml Result Diagram: 02/26/17 0415 02/26/17 0415 Other Results Laboratory Tests Test 02/25/17 02/25/17 10:44 11:45 Blood Gas Puncture Site ART LINE ART LINE Blood Gas Patient Temperature 98.6 98.6 Blood Gas HCO3 22 mmol/L 21 mmol/L (22-26) (22-26) Blood Gas Base Excess -2.5 mmol/L -3.7 mmol/L (-2-2) (-2-2) Blood Gas Oxygen Saturation 98 % (90-100) 97 % (90-100) Arterial Blood pH 7.38 7.37 (7.380-7.420) (7.380-7.420) Arterial Blood Partial 38 mmHg (38-42) 37 mmHg (38-42) Pressure CO2 Arterial Blood Partial 245 mmHg 264 mmHg Pressure O2 (61-120) (61-120) Arterial Blood Oxygen Content 13.9 Vol % 16.2 Vol % (12.0-20.0) (12.0-20.0) Arterial Blood 1.3 % (0-4) 1.4 % (0-4) Carboxyhemoglobin Arterial Blood Methemoglobin 1.0 % (0-2) 1.3 % (0-2) Blood Gas Hemoglobin 9.7 G/DL 11.4 G/DL (12.0-16.0) (12.0-16.0) Oxygen Delivery Device VENTILATOR VENTILATOR Objective Remarks P 78, BP 87/56, R 14, sats 97% Gen: Calm Head: NL. Neck: Supple, airway patent, no obstruction or stridor. Lungs: Clear, no labored efforts. No wheezes or crackles. Heart: NL S1S2, RRR, No JVD. Abdomen: Post surgical, nondistended. Few BS. Extremities: Warm, well perfused. Neuro: Alert, O X 3, moves 4 limbs to command. Conversant. A/P Assessment and Plan Assessment: 1. S/P left radial nephrectomy. 2. S/P partial gastric resection Plan: 1. Maintenance iv rate. 2. IS q2h. 3. Pulse ox. 4. Hgb a.m. 5. BMP a.m. 6. HOB up 30 degrees. 7. NG to LIS, NPO. Overall impression: Warm and well perfused s/p left radical nephrectomy. Mild hypotension but quite stable. Will follow in ISC. Chemo Harmon MD Feb 26, 2017 07:09
--- NOTE | 2017-02-26 08:37 | HHI.PR ---
Subjective Patient symptoms today Pt seen and examined. Pain controlled. Hgb 9.6. B/P stable Objective Vital Signs Vital Signs Date Time Temp Pulse Resp B/P Pulse Ox O2 Delivery O2 Flow Rate FiO2 02/26/17 08:16 94 Nasal Cannula 2.00 02/26/17 06:00 88 02/26/17 06:00 13 02/26/17 04:00 90 02/26/17 04:00 97.6 90 15 85/52 94 02/26/17 02:00 87 02/26/17 00:00 97.9 81 13 107/53 96 02/26/17 00:00 81 02/25/17 22:00 80 02/25/17 22:00 15 02/25/17 20:11 97 Nasal Cannula 2.00 02/25/17 20:00 74 02/25/17 20:00 97.4 71 12 109/59 97 02/25/17 19:00 94 Nasal Cannula 3.00 02/25/17 18:00 72 02/25/17 16:00 84 02/25/17 16:00 97.9 86 13 94/59 96 Automatic Cuff 02/25/17 15:00 81 02/25/17 15:00 98 Nasal Cannula 4.00 02/25/17 14:30 97.4 82 12 92/59 99 Nasal Cannula 4 02/25/17 14:15 79 12 94/55 99 Nasal Cannula 4 02/25/17 14:00 75 12 93/58 98 Nasal Cannula 4 02/25/17 13:45 75 12 91/56 98 Nasal Cannula 4 02/25/17 13:30 77 12 102/58 98 Nasal Cannula 4 02/25/17 13:15 84 12 95/51 98 Nasal Cannula 4 02/25/17 13:00 84 12 111/59 99 Nasal Cannula 4 02/25/17 12:45 84 12 102/60 98 Nasal Cannula 4 02/25/17 12:28 97.0 90 18 105/59 98 Nasal Cannula 4 Intake & Output 02/26/17 02/26/17 07:00 19:00 Intake Total 2656 ml Output Total 995 ml Balance 1661 ml Intake Oral 505 ml IV Total 2151 ml Output Urine Total 475 ml Stool Total 0 ml Gastric Drainage Total 500 ml Drainage Total 20 ml Result Diagram: 02/26/17 0415 02/26/17 0415 Imaging Last 24 hours Impressions Chest X-Ray 02/26/17 0600 Signed Impressions: Service Date/Time: Sunday, February 26, 2017 04:18 - CONCLUSION: The NG tube could be advanced. Lungs are grossly clear. Dustin Brown MD Objective Remarks Abd:soft,incisional tenderness, dressing intact Mckenna with clear urine Ext: neg C/C/E Medications and IVs Current Medications Medications (Trade) Dose Ordered Sig/Dennis Route Start Time Stop Time Status Last Admin Acetaminophen 650 mg 650 mg Q6H PRN PO 02/25/17 15:00 (Cipro 400 Mg Premix) 200 ml @ 200 mls/hr Q24H IV 02/25/17 15:00 02/25/17 15:32 Miscellaneous Information ALL NURSING DEPARTME... UNSCH PRN .XX 02/25/17 12:18 02/26/17 12:17 (Dilaudid UNIT COORDINATOR Inj) 6 mg UNSCH IV 02/25/17 14:30 UNIT COORDINATOR Dosage Infused (Pha) 1 Q8HR .XX 02/25/17 22:00 02/26/17 06:00 (Narcan Inj) 0.4 mg UNSCH PRN IV 02/25/17 15:00 Diphenhydramine HCl 25 mg 25 mg Q6H PRN PO 02/25/17 15:00 (NS 1000 ml Inj) 1,000 ml @ 84 mls/hr [id number] IV 02/25/17 16:00 02/26/17 05:06 (Morphine Inj) 2 mg Q2H PRN IV 02/25/17 14:45 (Protonix Inj) 40 mg DAILY IV 02/26/17 09:00 (Zofran Inj) 4 mg Q6H PRN IV 02/25/17 14:45 02/25/17 15:57 Miscellaneous Information 1 [id number] XX 02/25/17 14:45 02/25/17 20:45 (Chlorhexidine 2% Cloth) 3 pack Taper DAILY@04 TOP 02/26/17 04:00 02/22/18 03:59 02/26/17 05:06 (Chlorhexidine 2% Cloth) 3 pack UNSCH PRN TOP 02/25/17 14:45 (Dilaudid Pf Inj) 0.5 mg Q4H PRN IV PUSH 02/25/17 14:45 (Chloraseptic Sibley) 1 spray UNSCH PRN OROPHARYNG 02/25/17 21:30 Assessment and Plan Assessment and Plan Stable s/p left radical nephrectomy with partial gastrectomy OOB to chair Encourage I/S D/C NGT per general surgery Slow with ice chips to avoid nausea in view of recent gastric surgery Tony Connors DO Feb 26, 2017 08:37
[2017-02-26] MEDS: PANTOPRAZOLE SODIUM 40 MG VIAL IV SCH (09:46)
--- NOTE | 2017-02-26 10:09 | HHI.PR ---
Subjective Subjective Notes Doing well, denies complaints. Has been taking ice chips, NG output clear. Objective Vitals/I&O Vital Signs Date Time Temp Pulse Resp B/P Pulse Ox O2 Delivery O2 Flow Rate FiO2 02/26/17 08:16 94 Nasal Cannula 2.00 02/26/17 06:00 88 02/26/17 06:00 13 02/26/17 04:00 97.6 85/52 Labs Laboratory Tests Test 02/25/17 02/25/17 02/25/17 02/25/17 10:44 11:19 11:40 11:45 Blood Gas Puncture Site ART LINE ART LINE Blood Gas Patient Temperature 98.6 98.6 Blood Gas HCO3 22 21 Blood Gas Base Excess -2.5 -3.7 Blood Gas Oxygen Saturation 98 97 Arterial Blood pH 7.38 7.37 Arterial Blood Partial 38 37 Pressure CO2 Arterial Blood Partial 245 264 Pressure O2 Arterial Blood Oxygen Content 13.9 16.2 Arterial Blood 1.3 1.4 Carboxyhemoglobin Arterial Blood Methemoglobin 1.0 1.3 Blood Gas Hemoglobin 9.7 11.4 Oxygen Delivery Device VENTILATOR VENTILATOR Blood Type O POSITIVE Crossmatch Leukocyte-Reduced Red Blood Cells Blood Bank Comment White Blood Count 18.9 Red Blood Count 4.28 Hemoglobin 11.6 Hematocrit 35.5 Mean Corpuscular Volume 82.8 Mean Corpuscular Hemoglobin 27.0 Mean Corpuscular Hemoglobin 32.7 Concent Red Cell Distribution Width 14.0 Platelet Count 147 Mean Platelet Volume 9.6 Neutrophils (%) (Auto) 85.1 Lymphocytes (%) (Auto) 7.9 Monocytes (%) (Auto) 6.7 Eosinophils (%) (Auto) 0.1 Basophils (%) (Auto) 0.2 Neutrophils # (Auto) 16.1 Lymphocytes # (Auto) 1.5 Monocytes # (Auto) 1.3 Eosinophils # (Auto) 0.0 Basophils # (Auto) 0.0 CBC Comment DIFF FINAL Differential Comment Test 02/25/17 02/25/17 02/25/17 02/26/17 12:50 15:00 17:30 04:15 Sodium Level 142 143 Potassium Level 3.6 4.3 Chloride Level 109 111 Carbon Dioxide Level 22.8 26.0 Anion Gap 10 6 Blood Urea Nitrogen 17 17 Creatinine 0.81 1.01 Estimat Glomerular Filtration 70 54 Rate Random Glucose 175 112 Calcium Level 7.7 7.6 Nasal Screen MRSA (PCR) MRSA NOT DETECTED Hemoglobin 11.0 9.6 Hematocrit 32.9 28.5 White Blood Count 13.0 Red Blood Count 3.47 Mean Corpuscular Volume 82.3 Mean Corpuscular Hemoglobin 27.6 Mean Corpuscular Hemoglobin 33.5 Concent Red Cell Distribution Width 14.5 Platelet Count 133 Mean Platelet Volume 10.1 Neutrophils (%) (Auto) 73.6 Lymphocytes (%) (Auto) 11.5 Monocytes (%) (Auto) 14.8 Eosinophils (%) (Auto) 0.0 Basophils (%) (Auto) 0.1 Neutrophils # (Auto) 9.6 Lymphocytes # (Auto) 1.5 Monocytes # (Auto) 1.9 Eosinophils # (Auto) 0.0 Basophils # (Auto) 0.0 CBC Comment DIFF FINAL Differential Comment Abdomen: Non-distended, Other (dressing with minimal serosanguinous drainage.) , Post-op tenderness Extremities: SCD's on A/P Assessment and Plan POD 1 L nephrectomy, incidentally discovered Gastric tumor, s/p partial gastrectomy. Doing well. Clamp NG, trial of clears, if tolerates and residual low may DC NG later today. Keep HOB elevated. Fahad Miller MD Feb 26, 2017 10:09
[2017-02-26] MEDS: CIPROFLOXACIN 400 MG PREMIX 200 ML IV SCH (15:00)
[2017-02-26] MEDS: HYDROmorphone HCL PCA 6 MG/30 ML IV SCH (16:45)
--- NOTE | 2017-02-26 17:38 | MP ---
cc: MENA KENNEDY,KITTY López DO DATE OF SURGERY 02/25/17 PREOPERATIVE DIAGNOSIS Renal carcinoma. POSTOPERATIVE DIAGNOSIS Renal carcinoma with a gastric mass 3-4 cm on the greater curve of the stomach. PROCEDURE PERFORMED Resection of gastric mass along the greater curve of the stomach. ANESTHESIA General SURGEON Dr. Antionette Kennedy SHEET R[employer]ER Dr. Kitty Connors INDICATIONS This is a lady who was in the operating room. Dr. [place] Connors was doing a nephrectomy for large mass in the left side of left kidney. He has completed the nephrectomy and, during his exploration, he noted a mass on the curve of the stomach. He has asked to me as a general surgeon to come in and evaluate and treat. We discussed the case, reviewed the case. He had imaging on the board which is reviewed. It appears that this has the consistency and almost looks like a gist tumor along the greater curve, somewhat pedunculated. He has resected a portion on the superficial but in the intramuscular area the stomach mass is still palpated. PROCEDURE IN DETAIL The patient is in the operating room. There is a left subcostal incision. The stomach is palpated. This mass can be palpated along the greater curve. The short gastrics have been already taken down. We just take the BUSHRA green load of the stapler and able to fire across this to remove the mass with approximately 1 cm margins. The staple line is then oversewn with three 3-0 silk pop-off stitches. There is excellent hemostasis at the site. Dr. Connors was then going to irrigate and close the wound. See his operative note for complete details. At that time, I turned the case back over to Dr. Connors after I completed my portion of the resection of the stomach mass. MD TIMMY Joiner/ /12:35 PM /5:36 PM JOSÉ ANTONIO
[2017-02-26 19:23] LABS: HEMATOCRIT 24.1 % (35.0-46.0); REVIEW FLAG FINAL
[2017-02-27] VITALS (14 sets, daily range): BP systolic 99–135; BP diastolic 53–82; PULSE 77–98; RESP 15–23; TEMP 98–99.6; O2SAT 92–97
[2017-02-27 05:57] LABS: HEMATOCRIT 22.7 % (35.0-46.0); MEAN CORPUSCULAR HEMOGLOBIN 28.5 PG (27.0-34.0); MEAN CORPUSCULAR HGB CONC 34.3 % (32.0-36.0); PLATELET COUNT 105 TH/MM3 (150-450); RED BLOOD COUNT 2.73 MIL/MM3 (4.00-5.30); RED CELL DISTRIBUTION WIDTH 14.4 % (11.6-17.2); REVIEW FLAG FINAL; WHITE BLOOD COUNT 10.8 TH/MM3 (4.0-11.0)
[2017-02-27] MEDS: SODIUM CHLOR 0.9% 1000 ML INJ 1,000 ML IV SCH ×2 (06:24→13:53)
[2017-02-27] MEDS: CHLORHEXIDINE GLUCONATE 2 % 1 PACK (2 CLOTHS) TOP SCH (06:25)
[2017-02-27] MEDS: PCA - TOTAL MG DILAUDID DELIVERED PER SHIFT SCH ×3 (06:26→19:28)
[2017-02-27 06:28] LABS: BICARBONATE 25.5 MEQ/L (21.0-32.0); POTASSIUM 3.8 MEQ/L (3.5-5.1)
[2017-02-27] MEDS: PANTOPRAZOLE SODIUM 40 MG VIAL IV SCH (08:24)
--- NOTE | 2017-02-27 11:19 | HHI.PR ---
Subjective Subjective Notes no acute issues hh low 7.8, tolerating liquids, no flatus Objective Vitals/I&O Vital Signs Date Time Temp Pulse Resp B/P Pulse Ox O2 Delivery O2 Flow Rate FiO2 02/27/17 10:00 87 02/27/17 08:45 94 Nasal Cannula 2.00 02/27/17 08:00 99.2 22 135/67 Labs Laboratory Tests Test 02/26/17 02/27/17 18:45 04:45 Hemoglobin 8.0 7.8 Hematocrit 24.1 22.7 White Blood Count 10.8 Red Blood Count 2.73 Mean Corpuscular Volume 83.0 Mean Corpuscular Hemoglobin 28.5 Mean Corpuscular Hemoglobin 34.3 Concent Red Cell Distribution Width 14.4 Platelet Count 105 Mean Platelet Volume 10.0 Sodium Level 141 Potassium Level 3.8 Chloride Level 109 Carbon Dioxide Level 25.5 Anion Gap 7 Blood Urea Nitrogen 12 Creatinine 0.98 Estimat Glomerular Filtration 56 Rate Random Glucose 101 Calcium Level 7.9 Cardiovascular: Regular Lungs: Clear Abdomen: Other (soft incisional tenderness, kavin serosang/sang) A/P Assessment and Plan POD 2 L nephrectomy, incidentally discovered Gastric tumor, s/p partial gastrectomy. Doing well. PLAN On clears advance to fulls transfusion 1u prbc pain control ok to transfer to floor if ok with urology kavin sxn Keep HOB elevated. Ed Helm MD Feb 27, 2017 11:19
--- NOTE | 2017-02-27 12:04 | HHI.CCPN ---
Subjective Remarks/Hospital Course 71 y/o woman immediately s/p left nephrectomy for large renal mass and partial gastric resection for additional mass. EBL 1,800 mls. 02/26: Warm, well perfused. MAP 59 - 63. Urine output acceptable. Creat rise minimal. 02/27: Breathing comfortably. Well perfused. Objective Vital Signs Date Time Temp Pulse Resp B/P Pulse Ox O2 Delivery O2 Flow Rate FiO2 02/27/17 10:00 87 02/27/17 08:45 94 Nasal Cannula 2.00 02/27/17 08:00 99.2 22 135/67 Intake and Output 02/26/17 02/26/17 02/27/17 08:00 16:00 00:00 Intake Total 1934 ml 846 ml 959 ml Output Total 660 ml 410 ml 535 ml Balance 1274 ml 436 ml 424 ml Result Diagram: 02/27/1744402/27/17444 Objective Remarks Gen: Calm Head: NL. Neck: Supple, airway widely patent, no obstruction or stridor. Lungs: Clear, no labored efforts. No wheezes or crackles. Comfortable. Heart: NL S1S2, RRR, No JVD. Abdomen: Post surgical, nondistended. Few BS. Extremities: Warm, well perfused. Neuro: Alert, O X 3, moves 4 limbs to command. Conversant. A/P Assessment and Plan Assessment: 1. S/P left radial nephrectomy. 2. S/P partial gastric resection Plan: 1. Maintenance iv rate. 2. IS q2h. 3. Pulse ox. 4. Hgb a.m. 5. BMP a.m. 6. HOB up 30 degrees. 7. Diet per surgery Overall impression: Warm and well perfused s/p left radical nephrectomy. Mild hypotension but quite stable. To floor OK with me. Chemo Harmon MD Feb 27, 2017 12:04
--- NOTE | 2017-02-27 13:07 | HHI.PR ---
Subjective Patient symptoms today Pt seen and examined. Pt feels well. Hgb 7.8. Objective Vital Signs Vital Signs Date Time Temp Pulse Resp B/P Pulse Ox O2 Delivery O2 Flow Rate FiO2 02/27/17 12:40 99.1 88 23 109/55 93 Arterial Line 02/27/17 12:00 98.0 86 19 112/57 97 02/27/17 12:00 87 02/27/17 10:00 87 02/27/17 08:45 94 Nasal Cannula 2.00 02/27/17 08:00 98 02/27/17 08:00 99.2 98 22 135/67 94 02/27/17 07:00 94 Nasal Cannula 3.00 02/27/17 06:26 21 02/27/17 06:00 88 02/27/17 04:00 77 02/27/17 04:00 99.1 77 18 127/56 96 02/27/17 02:00 80 02/27/17 00:00 80 02/27/17 00:00 99.0 88 15 99/53 92 02/26/17 22:32 20 02/26/17 22:00 84 02/26/17 20:00 84 02/26/17 20:00 99.6 84 19 114/56 98 02/26/17 19:00 98 Nasal Cannula 3.00 02/26/17 18:00 83 02/26/17 17:15 14 02/26/17 16:45 20 02/26/17 16:00 98.0 87 15 107/62 96 02/26/17 16:00 76 02/26/17 14:00 88 02/26/17 14:00 18 Intake & Output 02/27/17 02/27/17 07:00 19:00 Intake Total 2071 ml Output Total 1092 ml Balance 979 ml Intake Oral 720 ml IV Total 1351 ml Output Urine Total 1075 ml Drainage Total 17 ml # Bowel Movements 0 Result Diagram: 02/27/17 0445 02/27/175 Objective Remarks Abd:soft,incisional tenderness, dressing intact Mckenna with clear urine Ext: neg C/C/E 02/27 Abd:soft,incisional tenderness, dressing intact Mckenna with clear urine; LUDWIN blood tinged Ext: neg C/C/E Medications and IVs Current Medications Medications (Trade) Dose Ordered Sig/Dennis Route Start Time Stop Time Status Last Admin Acetaminophen 650 mg 650 mg Q6H PRN PO 02/25/17 15:00 (Cipro 400 Mg Premix) 200 ml @ 200 mls/hr Q24H IV 02/25/17 15:00 02/26/17 15:00 (Dilaudid SOFT SHOE DANCER Inj) 6 mg UNSCH IV 02/25/17 14:30 02/26/17 16:45 SOFT SHOE DANCER Dosage Infused (Pha) 1 Q8HR .XX 02/25/17 22:00 02/27/17 06:26 (Narcan Inj) 0.4 mg UNSCH PRN IV 02/25/17 15:00 Diphenhydramine HCl 25 mg 25 mg Q6H PRN PO 02/25/17 15:00 (NS 1000 ml Inj) 1,000 ml @ 84 mls/hr [id number] IV 02/25/17 16:00 02/27/17 06:24 (Morphine Inj) 2 mg Q2H PRN IV 02/25/17 14:45 (Protonix Inj) 40 mg DAILY IV 02/26/17 09:00 02/27/17 08:24 (Zofran Inj) 4 mg Q6H PRN IV 02/25/17 14:45 02/25/17 15:57 Miscellaneous Information 1 Q361D XX 02/25/17 14:45 02/25/17 20:45 (Chlorhexidine 2% Cloth) 3 pack Taper DAILY@04 TOP 02/26/17 04:00 02/22/18 03:59 02/27/17 06:25 (Chlorhexidine 2% Cloth) 3 pack UNSCH PRN TOP 02/25/17 14:45 (Dilaudid Pf Inj) 0.5 mg Q4H PRN IV PUSH 02/25/17 14:45 (Chloraseptic [place]) 1 spray UNSCH PRN OROPHARYNG 02/25/17 21:30 Assessment and Plan Assessment and Plan Stable s/p left radical nephrectomy with partial gastrectomy OOB to chair Encourage I/S D/C NGT per general surgery Slow with ice chips to avoid nausea in view of recent gastric surgery 02/27 Stable s/p left radical nephrectomy with partial gastrectomy Will transfuse 1 unit PRBC's OOB to chair Encourage I/S Continue ice chips Tony Connors DO Feb 27, 2017 13:07
[2017-02-27] MEDS: CIPROFLOXACIN 400 MG PREMIX 200 ML IV SCH (13:52)
[2017-02-27 18:43] LABS: HEMATOCRIT 25.3 % (35.0-46.0); REVIEW FLAG FINAL
[2017-02-28] VITALS (10 sets, daily range): BP systolic 124–143; BP diastolic 58–78; PULSE 82–103; RESP 16–18; TEMP 97.8–99.5; O2SAT 92–96
[2017-02-28] MEDS: CHLORHEXIDINE GLUCONATE 2 % 1 PACK (2 CLOTHS) TOP SCH (02:46)
[2017-02-28] MEDS: PCA - TOTAL MG DILAUDID DELIVERED PER SHIFT SCH ×3 (06:00→20:26)
[2017-02-28] MEDS: SODIUM CHLOR 0.9% 1000 ML INJ 1,000 ML IV SCH ×2 (06:02→18:06)
[2017-02-28 06:13] LABS: HEMATOCRIT 23.5 % (35.0-46.0); MEAN CELL VOLUME 83.4 FL (80.0-100.0); MEAN CORPUSCULAR HEMOGLOBIN 28.8 PG (27.0-34.0); MEAN CORPUSCULAR HGB CONC 34.5 % (32.0-36.0); PLATELET COUNT 110 TH/MM3 (150-450); RED BLOOD COUNT 2.82 MIL/MM3 (4.00-5.30); RED CELL DISTRIBUTION WIDTH 14.2 % (11.6-17.2); REVIEW FLAG FINAL; WHITE BLOOD COUNT 8.3 TH/MM3 (4.0-11.0)
[2017-02-28 06:44] LABS: BICARBONATE 26.2 MEQ/L (21.0-32.0); POTASSIUM 3.4 MEQ/L (3.5-5.1)
[2017-02-28] MEDS: HYDROmorphone HCL PCA 6 MG/30 ML IV SCH (07:20)
--- NOTE | 2017-02-28 08:09 | HHI.PR ---
Subjective Patient symptoms today Pt seen and examined. Feeling better, passing flatus. Hgb 8.1 Objective Vital Signs Vital Signs Date Time Temp Pulse Resp B/P Pulse Ox O2 Delivery O2 Flow Rate FiO2 02/28/17 07:20 18 02/28/17 06:00 18 02/28/17 05:39 18 02/28/17 04:00 98.4 82 17 127/62 96 02/28/17 00:00 98.6 94 17 124/58 95 02/27/17 20:00 98.6 94 17 102/57 95 02/27/17 19:38 94 Nasal Cannula 3.00 02/27/17 19:28 18 02/27/17 19:17 95 Nasal Cannula 3.00 02/27/17 19:00 18 02/27/17 16:30 95 3.00 02/27/17 16:00 99.6 87 20 125/82 95 02/27/17 16:00 87 02/27/17 14:00 83 02/27/17 12:40 99.1 88 23 109/55 93 Arterial Line 02/27/17 12:00 98.0 86 19 112/57 97 02/27/17 12:00 87 02/27/17 10:00 87 02/27/17 08:45 94 Nasal Cannula 2.00 Intake & Output 02/28/17 02/28/17 07:00 19:00 Intake Total 1755 ml Output Total 760 ml Balance 995 ml Intake Oral 480 ml IV Total 1275 ml Output Urine Total 700 ml Drainage Total 60 ml Result Diagram: 02/28/17 0600 02/28/17 0600 Objective Remarks Abd:soft,incisional tenderness, dressing intact Lerner with clear urine Ext: neg C/C/E 02/27 Abd:soft,incisional tenderness, dressing intact Lerner with clear urine; LUDWIN blood tinged Ext: neg C/C/E 02/28 Abd:soft,incisional tenderness, dressing intact Lerner with clear urine; LUDWIN blood tinged Ext: neg C/C/E Medications and IVs Current Medications Medications (Trade) Dose Ordered Sig/Dennis Route Start Time Stop Time Status Last Admin Acetaminophen 650 mg 650 mg Q6H PRN PO 02/25/17 15:00 (Cipro 400 Mg Premix) 200 ml @ 200 mls/hr Q24H IV 02/25/17 15:00 02/27/17 13:52 (Dilaudid MEDICAL DERMATOLOGIST Inj) 6 mg UNSCH IV 02/25/17 14:30 02/28/17 07:20 MEDICAL DERMATOLOGIST Dosage Infused (Pha) 1 Q8HR .XX 02/25/17 22:00 02/28/17 06:00 (Narcan Inj) 0.4 mg UNSCH PRN IV 02/25/17 15:00 Diphenhydramine HCl 25 mg 25 mg Q6H PRN PO 02/25/17 15:00 (NS 1000 ml Inj) 1,000 ml @ 84 mls/hr [id number] IV 02/25/17 16:00 02/28/17 06:02 (Morphine Inj) 2 mg Q2H PRN IV 02/25/17 14:45 (Protonix Inj) 40 mg DAILY IV 02/26/17 09:00 02/27/17 08:24 (Zofran Inj) 4 mg Q6H PRN IV 02/25/17 14:45 02/25/17 15:57 Miscellaneous Information 1 Q361D XX 02/25/17 14:45 02/25/17 20:45 (Chlorhexidine 2% Cloth) 3 pack Taper DAILY@04 TOP 02/26/17 04:00 02/22/18 03:59 02/27/17 06:25 (Chlorhexidine 2% Cloth) 3 pack UNSCH PRN TOP 02/25/17 14:45 (Dilaudid Pf Inj) 0.5 mg Q4H PRN IV PUSH 02/25/17 14:45 Phenol 1 spray 1 spray UNSCH PRN OROPHARYNG 02/25/17 21:30 (KCl 40 Meq Premix Inj) 100 ml @ 25 mls/hr Q4H IV 02/28/17 08:00 02/28/17 15:59 Assessment and Plan Assessment and Plan Stable s/p left radical nephrectomy with partial gastrectomy OOB to chair Encourage I/S D/C NGT per general surgery Slow with ice chips to avoid nausea in view of recent gastric surgery 02/27 Stable s/p left radical nephrectomy with partial gastrectomy Will transfuse 1 unit PRBC's OOB to chair Encourage I/S Continue ice chips 02/28 Stable s/p left radical nephrectomy with partial gastrectomy OOB/Ambulate D/C lerner catheter Clear liquid diet today Tony Connors DO Feb 28, 2017 08:09
--- NOTE | 2017-02-28 09:43 | HHI.PR ---
Subjective Subjective Notes sore, wants to get up, tolerating some po, no BM yet. Objective Vitals/I&O Vital Signs Date Time Temp Pulse Resp B/P Pulse Ox O2 Delivery O2 Flow Rate FiO2 02/28/17 08:00 97.8 97 18 143/76 94 02/27/17 19:38 Nasal Cannula 3.00 Labs Laboratory Tests Test 02/27/17 02/27/17 02/28/17 10:46 18:25 06:00 Blood Type O POSITIVE Antibody Screen NEGATIVE Crossmatch Leukocyte-Reduced Red Blood Cells Blood Bank Comment Hemoglobin 8.4 8.1 Hematocrit 25.3 23.5 White Blood Count 8.3 Red Blood Count 2.82 Mean Corpuscular Volume 83.4 Mean Corpuscular Hemoglobin 28.8 Mean Corpuscular Hemoglobin 34.5 Concent Red Cell Distribution Width 14.2 Platelet Count 110 Mean Platelet Volume 9.7 Sodium Level 141 Potassium Level 3.4 Chloride Level 108 Carbon Dioxide Level 26.2 Anion Gap 7 Blood Urea Nitrogen 8 Creatinine 0.78 Estimat Glomerular Filtration 73 Rate Random Glucose 95 Calcium Level 8.0 Abdomen: Non-distended, Post-op tenderness Wound Wound : Wound Location: Abdomen Appearance: Clean & Dry Dressing: Dry A/P Assessment and Plan s/p resection gastric mass and LEFT renal mass doing well advance diet as tolerated transfuse in symptomatic LUDWIN per Eren Christina MD Feb 28, 2017 09:43
[2017-02-28] MEDS: POTASSIUM CHLOR 40 MEQ PREMIX 100 ML IV SCH ×2 (10:18→15:08)
[2017-02-28] MEDS: PANTOPRAZOLE SODIUM 40 MG VIAL IV SCH (10:18)
[2017-02-28] MEDS: CIPROFLOXACIN 400 MG PREMIX 200 ML IV SCH (18:03)
[2017-03-01] VITALS (8 sets, daily range): BP systolic 122–154; BP diastolic 70–85; PULSE 82–90; RESP 16–18; TEMP 96–98.9; O2SAT 91–96
[2017-03-01] MEDS: CHLORHEXIDINE GLUCONATE 2 % 1 PACK (2 CLOTHS) TOP SCH (04:00)
[2017-03-01] MEDS: PCA - TOTAL MG DILAUDID DELIVERED PER SHIFT SCH (06:00)
[2017-03-01] MEDS: SODIUM CHLOR 0.9% 1000 ML INJ 1,000 ML IV SCH (06:10)
[2017-03-01 06:52] LABS: HEMATOCRIT 23.2 % (35.0-46.0); MEAN CELL VOLUME 82.8 FL (80.0-100.0); PLATELET COUNT 147 TH/MM3 (150-450); RED CELL DISTRIBUTION WIDTH 13.9 % (11.6-17.2); REVIEW FLAG FINAL; WHITE BLOOD COUNT 6.9 TH/MM3 (4.0-11.0)
[2017-03-01 06:59] LABS: BICARBONATE 27.4 MEQ/L (21.0-32.0); POTASSIUM 3.4 MEQ/L (3.5-5.1)
[2017-03-01] MEDS: PANTOPRAZOLE SODIUM 40 MG VIAL IV SCH (08:24)
--- NOTE | 2017-03-01 09:26 | HHI.PR ---
Subjective Subjective Notes Up in chair, c/o some RLQ tenderness. Tired of clears, wants to eat. Has passed flatus. Objective Vitals/I&O Vital Signs Date Time Temp Pulse Resp B/P Pulse Ox O2 Delivery O2 Flow Rate FiO2 03/01/17 08:00 96.0 90 18 154/81 92 02/28/17 20:22 21 02/28/17 10:30 Room Air 02/28/17 07:16 3.00 Labs Laboratory Tests Test 03/01/17 06:20 White Blood Count 6.9 Red Blood Count 2.80 Hemoglobin 8.1 Hematocrit 23.2 Mean Corpuscular Volume 82.8 Mean Corpuscular Hemoglobin 29.0 Mean Corpuscular Hemoglobin 35.0 Concent Red Cell Distribution Width 13.9 Platelet Count 147 Mean Platelet Volume 9.1 Sodium Level 141 Potassium Level 3.4 Chloride Level 109 Carbon Dioxide Level 27.4 Anion Gap 5 Blood Urea Nitrogen 7 Creatinine 0.85 Estimat Glomerular Filtration 66 Rate Random Glucose 92 Calcium Level 8.0 Cardiovascular: Regular Lungs: Clear Abdomen: Non-distended, Other (LUQ incision with shayy intact, no erythema or drainage. Drain with serosanguinous drainage. Mild RLQ tenderness to palpation, no rebound.) A/P Assessment and Plan Postop L nephrectomy, incidentally discovered Gastric tumor, s/p partial gastrectomy. Doing well. Advance diet to regular. Get in halls walking. KVO IVFs. Fahad Miller MD Mar 01, 2017 09:26
--- NOTE | 2017-03-01 10:10 | HHI.PR ---
Subjective Patient symptoms today Pt seen and examined. Feels well. Moving bowels. Objective Vital Signs Vital Signs Date Time Temp Pulse Resp B/P Pulse Ox O2 Delivery O2 Flow Rate FiO2 03/01/17 09:30 16 03/01/17 08:00 96.0 90 18 154/81 92 03/01/17 06:00 16 03/01/17 04:00 97.4 82 17 122/70 96 03/01/17 00:00 98.2 87 17 124/72 96 02/28/17 20:26 18 02/28/17 20:22 95 21 02/28/17 20:00 18 02/28/17 20:00 99.2 103 17 138/78 95 02/28/17 16:00 99.5 101 18 132/76 92 02/28/17 13:52 16 02/28/17 12:00 98.7 89 18 130/66 94 02/28/17 10:30 Room Air 02/28/17 10:30 16 Intake & Output 03/01/17 03/01/17 07:00 19:00 Intake Total 2127 ml Output Total 120 ml Balance 2007 ml Intake Oral 720 ml IV Total 1407 ml Drainage Total 120 ml # Voids 4 Result Diagram: 03/01/17 0620 03/01/17 06 Objective Remarks Abd:soft,incisional tenderness, dressing intact Lerner with clear urine Ext: neg C/C/E 02/27 Abd:soft,incisional tenderness, dressing intact Lerner with clear urine; LUDWIN blood tinged Ext: neg C/C/E 02/28 Abd:soft,incisional tenderness, dressing intact Lerner with clear urine; LUDWIN blood tinged Ext: neg C/C/E 03/01 Abd:soft,nt,nd Wound: clean and dry LUDWIN: serous fluid Ext: neg C/C/E Medications and IVs Current Medications Medications (Trade) Dose Ordered Sig/Dennis Route Start Time Stop Time Status Last Admin Acetaminophen 650 mg 650 mg Q6H PRN PO 02/25/17 15:00 (Cipro 400 Mg Premix) 200 ml @ 200 mls/hr Q24H IV 02/25/17 15:00 02/28/17 18:03 (Dilaudid CHINCHILLA MACHINE OPERATOR Inj) 6 mg UNSCH IV 02/25/17 14:30 02/28/17 07:20 CHINCHILLA MACHINE OPERATOR Dosage Infused (Pha) 1 Q8HR .XX 02/25/17 22:00 03/01/17 06:00 (Narcan Inj) 0.4 mg UNSCH PRN IV 02/25/17 15:00 Diphenhydramine HCl 25 mg 25 mg Q6H PRN PO 02/25/17 15:00 (NS 1000 ml Inj) 1,000 ml @ 0 mls/hr [id number] IV 02/25/17 16:00 03/01/17 06:10 (Morphine Inj) 2 mg Q2H PRN IV 02/25/17 14:45 (Protonix Inj) 40 mg DAILY IV 02/26/17 09:00 03/01/17 08:24 (Zofran Inj) 4 mg Q6H PRN IV 02/25/17 14:45 02/25/17 15:57 Miscellaneous Information 1 Q361D XX 02/25/17 14:45 02/25/17 20:45 (Chlorhexidine 2% Cloth) 3 pack Taper DAILY@04 TOP 02/26/17 04:00 02/22/18 03:59 02/27/17 06:25 (Chlorhexidine 2% Cloth) 3 pack UNSCH PRN TOP 02/25/17 14:45 (Dilaudid Pf Inj) 0.5 mg Q4H PRN IV PUSH 02/25/17 14:45 (Chloraseptic [place]) 1 spray UNSCH PRN OROPHARYNG 02/25/17 21:30 Assessment and Plan Assessment and Plan Stable s/p left radical nephrectomy with partial gastrectomy OOB to chair Encourage I/S D/C NGT per general surgery Slow with ice chips to avoid nausea in view of recent gastric surgery 02/27 Stable s/p left radical nephrectomy with partial gastrectomy Will transfuse 1 unit PRBC's OOB to chair Encourage I/S Continue ice chips 02/28 Stable s/p left radical nephrectomy with partial gastrectomy OOB/Ambulate D/C lerner catheter Clear liquid diet today 03/01 Stable s/p left radical nephrectomy and partial gastrectomy POD#4 Reg diet OOB D/C LUDWIN drain US of thyroid for h/o thyroid nodule Tony Connors DO Mar 01, 2017 10:10
--- NOTE | 2017-03-01 13:46 | RADRPT ---
EXAM DATE/TIME: 03/01/2017 12:28 [facility] COMPARISON: No previous studies available for comparison. INDICATIONS : History of thyroid nodule. MEDICAL HISTORY : Renal mass. Headaches. Thyroid disease. SURGICAL HISTORY : Tonsillectomy. Hysterectomy. Nephrectomy, left. Gastrectomy. Partial thyroidectomy. ENCOUNTER: Initial ACUITY: >1 year PAIN SCORE: 0/10 LOCATION: Bilateral neck MEASUREMENTS: RIGHT LOBE: 4.3 x 3.3 x 1.9 cm LEFT LOBE: 5.3 x 3.1 x 2.9 cm FINDINGS: There is a reported history of hilar nodule removal, benign. There are numerous bilateral solid thyroid nodules. The right side dominant nodule measures 2.6 x 2.4 x 1.9 cm midpole. There is a subcentimeter multicys tic appearing lesion measuring about 6 mm in diameter in the upper pole. On the left side there is a solid 2 cm nodule in the mid pole and a complex 1.6 cm nodule in the lowe r pole. CONCLUSION: 1. Solid circumscribed bilateral thyroid nodules measuring up to 2.6 cm on the right and 2 cm on the left in the mid pole region. Flynn Zavala MD on March 01, 2017 at 13:35 Board Certified Radiologist. This report was verified electronically.
[2017-03-01] MEDS: ACETAMINOPHEN/HYDROcodone 325 MG/5 MG TAB PO PRN (20:11)
[2017-03-02] VITALS: BP 120/67; PULSE 81; RESP 18; TEMP 98.2; O2SAT 93
[2017-03-02] MEDS: ACETAMINOPHEN/HYDROcodone 325 MG/5 MG TAB PO PRN ×2 (02:25→09:21)
[2017-03-02] MEDS: CHLORHEXIDINE GLUCONATE 2 % 1 PACK (2 CLOTHS) TOP SCH (04:00)
[2017-03-02 08:00] VITALS: BP 120/62; PULSE 69; RESP 17; TEMP 96.8; O2SAT 94
[2017-03-02] MEDS: PANTOPRAZOLE SODIUM 40 MG VIAL IV SCH (09:06)
--- NOTE | 2017-03-02 09:43 | HHI.PR ---
Subjective Patient symptoms today Pt seen and examined. Feels well. Pain controlled. Path pending. Objective Vital Signs Vital Signs Date Time Temp Pulse Resp B/P Pulse Ox O2 Delivery O2 Flow Rate FiO2 03/02/17 09:26 Room Air 3.00 21 03/02/17 08:00 96.8 69 17 120/62 94 03/02/17 00:00 98.2 81 18 120/67 93 03/01/17 20:00 98.9 88 18 147/72 93 03/01/17 17:23 91 21 03/01/17 16:00 96.8 89 18 141/79 91 03/01/17 12:00 98.2 84 18 148/85 91 Intake & Output 03/02/17 03/02/17 07:00 19:00 Intake Total 705 ml 120 ml Balance 705 ml 120 ml Intake Oral 240 ml 120 ml IV Total 465 ml # Voids 2 1 # Bowel Movements 0 Result Diagram: 03/01/1761903/01/17619 Objective Remarks Abd:soft,incisional tenderness, dressing intact Lerner with clear urine Ext: neg C/C/E 02/27 Abd:soft,incisional tenderness, dressing intact Lerner with clear urine; LUDWIN blood tinged Ext: neg C/C/E 02/28 Abd:soft,incisional tenderness, dressing intact Lerner with clear urine; LUDWIN blood tinged Ext: neg C/C/E 03/01 Abd:soft,nt,nd Wound: clean and dry LUDWIN: serous fluid Ext: neg C/C/E 03/02 Abd:soft,nt,nd Wound: clean and dry Voiding well LUDWIN out Medications and IVs Current Medications Medications (Trade) Dose Ordered Sig/Dennis Route Start Time Stop Time Status Last Admin (Tylenol 650 Mg/ 20 ml Liq) 650 mg Q6H PRN PO 02/25/17 15:00 Diphenhydramine HCl 25 mg 25 mg Q6H PRN PO 02/25/17 15:00 (NS 1000 ml Inj) 1,000 ml @ 0 mls/hr [id number] IV 02/25/17 16:00 03/01/17 06:10 (Morphine Inj) 2 mg Q2H PRN IV 02/25/17 14:45 (Protonix Inj) 40 mg DAILY IV 02/26/17 09:00 03/02/17 09:06 (Zofran Inj) 4 mg Q6H PRN IV 02/25/17 14:45 02/25/17 15:57 Miscellaneous Information 1 Q361D XX 02/25/17 14:45 02/25/17 20:45 (Chlorhexidine 2% Cloth) 3 pack Taper DAILY@04 TOP 02/26/17 04:00 02/22/18 03:59 02/27/17 06:25 (Chlorhexidine 2% Cloth) 3 pack UNSCH PRN TOP 02/25/17 14:45 (Dilaudid Pf Inj) 0.5 mg Q4H PRN IV PUSH 02/25/17 14:45 (Chloraseptic Hematite) 1 spray UNSCH PRN OROPHARYNG 02/25/17 21:30 (Delmita 5-325 Mg) 2 tab Q6H PRN PO 03/01/17 10:30 03/02/17 09:21 Assessment and Plan Assessment and Plan Stable s/p left radical nephrectomy with partial gastrectomy OOB to chair Encourage I/S D/C NGT per general surgery Slow with ice chips to avoid nausea in view of recent gastric surgery 02/27 Stable s/p left radical nephrectomy with partial gastrectomy Will transfuse 1 unit PRBC's OOB to chair Encourage I/S Continue ice chips /3 Stable s/p left radical nephrectomy with partial gastrectomy OOB/Ambulate D/C lerner catheter Clear liquid diet today 7/ Stable s/p left radical nephrectomy and partial gastrectomy POD#4 Reg diet OOB D/C LUDWIN drain US of thyroid for h/o thyroid nodule 7/ Stable s/p left radical nephrectomy and partial gastrectomy POD#5 D/C home today. F/U in clinic on Tuesday for staple removal. Tony Connors DO Mar 02, 2017 09:43
[2017-03-02 10:42] VITALS: O2SAT 95
== END 2017-03-02 13:55 | disposition home or self-care (01) | DRG 657 ==
LOC: HSDI 02-25 05:34 → N03B 02-25 15:13 → N07A 02-27 16:15
PROVIDERS: ADMIT Urology; ATTEND Urology
PROC: 0TT10ZZ Resection of Left Kidney, Open Approach (ICD-10-PCS; principal; 2017-02-25 07:37)
PROC: 0DB60ZZ Excision of Stomach, Open Approach (ICD-10-PCS; 2017-02-25 07:37)
PROC: 30233N1 Transfusion of Nonautologous Red Blood Cells into Peripheral Vein, Percutaneous Approach (ICD-10-PCS; 2017-02-27)
DX: C64.2 Malignant neoplasm of left kidney, except renal pelvis (principal); C49.A0 Gastrointestinal stromal tumor, unspecified site; I95.9 Hypotension, unspecified; D64.9 Anemia, unspecified; E04.1 Nontoxic single thyroid nodule; Z88.0 Allergy status to penicillin; Z88.1 Allergy status to other antibiotic agents
CPT/HCPCS: 36430; 71010; 74000; 76536; 80048; 82805; 85014; 85018; 85025; 85027; 86850; 86900; 86901; 86920; 87641; 88307; 88312; 88341; 88342; 94150; 94664; C9113; J0131; J0744; J1100; J1130; J1170; J2250; J2270; J2370; J2405; J2710; J3010; J3370; J3480; J7030; J7040; J7050; J7120; P9016

== ENCOUNTER → 2017-02-24 | Outpatient (CLI) | payer MEDICAID, MEDICARE ==
[2017-02-24 12:02] LABS: AUTOMATED NEUTROPHIL # 3.2 TH/MM3 (1.8-7.7); BASOPHIL % 0.5 % (0.0-2.0); EOSINOPHIL # 0.1 TH/MM3 (0-0.4); EOSINOPHIL % 2.3 % (0.0-4.0); HEMATOCRIT 37.1 % (35.0-46.0); HEMO FLAGS DIFF FINAL; LYMPH % 35.1 % (9.0-44.0); LYMPHOCYTE # 2.3 TH/MM3 (1.0-4.8); MEAN CORPUSCULAR HEMOGLOBIN 27.7 PG (27.0-34.0); MEAN CORPUSCULAR HGB CONC 33.7 % (32.0-36.0); MONO % 13.1 % (0.0-8.0); PLATELET COUNT 182 TH/MM3 (150-450); RED BLOOD COUNT 4.52 MIL/MM3 (4.00-5.30); RED CELL DISTRIBUTION WIDTH 14.3 % (11.6-17.2); WHITE BLOOD COUNT 6.5 TH/MM3 (4.0-11.0)
[2017-02-24 12:12] LABS: APTT (PATIENT) 29.2 SEC (24.3-30.1); PROTHROMBIN TIME - PATIENT 10.7 SEC (9.8-11.6)
[2017-02-24 12:29] LABS: ANION GAP 8 MEQ/L (5-15); BICARBONATE 26.7 MEQ/L (21.0-32.0); BLOOD UREA NITROGEN 13 MG/DL (7-18); CHLORIDE 105 MEQ/L (98-107); GLUCOSE,FASTING 88 MG/DL (74-99); POTASSIUM 4.1 MEQ/L (3.5-5.1); SODIUM (NA) 140 MEQ/L (136-145)
[2017-02-24 12:31] LABS: ALKALINE PHOSPHATASE 71 U/L (45-117); AST (GOT) 18 U/L (15-37); GLOMERULAR FILTRATION RATE 89 ML/MIN (>89); TOTAL BILIRUBIN ADULT 0.7 MG/DL (0.2-1.0)
[2017-02-24 12:34] LABS: ALT (GPT) 26 U/L (10-53)
== END ==
LOC: CPRE 10:35
PROVIDERS: ATTEND Urology
DX: Z01.810 Encounter for preprocedural cardiovascular examination (principal); Z01.812 Encounter for preprocedural laboratory examination; N28.89 Other specified disorders of kidney and ureter
CPT/HCPCS: 36415; 36430; 80053; 85025; 85610; 85730; 86850; 86900; 86901; 86920; P9016

== ENCOUNTER → 2017-06-02 | Outpatient (CLI) | payer MEDICAID ==
--- NOTE | 2017-06-02 17:01 | RADRPT ---
EXAM DATE/TIME: 06/02/2017 15:47 [facility] COMPARISON: CT THORAX W CONTRAST, February 15, 2017, 10:12. US THYROID, March 01, 2017, 12:28. INDICATIONS : History of thyroid nodule. MEDICAL HISTORY : Kidney cancer. SURGICAL HISTORY : Nephrectomy, left. Hysterectomy. Tonsillectomy. Partial thyroidectomy. ENCOUNTER: Initial ACUITY: 1 day PAIN SCORE: 0/10 LOCATION: Bilateral neck MEASUREMENTS: RIGHT LOBE: 4.3 x 2.6 x 1.7 cm LEFT LOBE: 5.0 x 2.6 x 2.0 cm FINDINGS: RIGHT LOBE: The right lobe is at the upper limits of normal in size. There is a subtle slightly hyperechoic solid nodule in the mid gland without significant change. There is no measures 2.4 x 1.9 x 2[address] compared to 2.6 x 2.4 x 1.9 cm on the prior study. LEFT LOBE: The left lobe made at the upper limits of normal in size. There is a complex subtle nodule in the mid gland now measuring approximately 1.0 x 1.2 x 1.0 cm compared to 1.3 x 1.6 x 1.1 cm. There is a elliot d hypoechoic nodule also noted in the mid gland which measures slightly smaller as well measuring 1.7 x 1.7 x 1.7 cm compared to 2.0 x 1.0 x 1.8 cm. There is increased vascularity surrounding the nodule s. ISTHMUS: Normal in size without focal abnormality. CONCLUSION: 1. Stable subtle nodule in the right lobe. 2. 2 nodules in the left lobe which appear to decreased slightly in size. Ney Hall MD on June 02, 2017 at 16:55 Board Certified Radiologist. This report was verified electronically.
== END ==
LOC: HRAD 15:18
PROVIDERS: ATTEND Surgery
DX: E04.1 Nontoxic single thyroid nodule (principal)
CPT/HCPCS: 76536